=== PATIENT | female | born 1955 | race Caucasian/White ===

== ENCOUNTER 2018-04-14 17:53 | Emergency (ER) | payer MEDICARE, OTHER ==
[~2018-04-14] VITALS: Ht 157.5 cm; Wt 98.0 kg
--- NOTE | 2018-04-14 17:58 | ED Lower Extremity ---
General Stated Complaint: BILAT LEG SWELLING Source: patient, family, EMS Exam Limitations: no limitations History of Present Illness Date Seen by Provider: Apr 14, 2018 Time Seen by Provider: 17:56 Initial Comments To ER per EMS from home with reports of bilateral lower actually swelling for the past 4 days. She reports chronic shortness of breath. She just moved here to [place] week ago. Prior to this she lived in [place] and prior to that she lived in [place]. She had this once before when she lived in [place], was given a short course of Lasix and the swelling improved. Onset: just prior to arrival Severity: moderate Pain/Injury Location: bilateral leg Modifying Factors: Worse With Movement Allergies and Home Medications Home Medications Furosemide 40 Mg Tablet, 40 MG PO DAILY Prescribed by: ADRIAN VALVERDE on 04/14/18 1850 Patient Home Medication List Home Medication List Reviewed: Yes Review of Systems Constitutional: see HPI EENTM: see HPI Respiratory: see HPI Cardiovascular: no symptoms reported Genitourinary: no symptoms reported Musculoskeletal: see HPI Skin: no symptoms reported Psychiatric/Neurological: No Symptoms Reported (1 the) Physical Exam Vital Signs Vital Signs - First Documented 04/14/18 17:58 Temp 97.9 Pulse 94 Resp 20 B/P (MAP) 124/74 (91) Pulse Ox 96 O2 Delivery Room Air Capillary Refill : Height, Weight, BMI Height: '" Weight: lbs. oz. kg; BMI Method: General Appearance: WD/WN, no apparent distress HEENT: PERRL/EOMI, normal ENT inspection Neck: non-tender, full range of motion Cardiovascular: regular rate, rhythm, no murmur Respiratory: no respiratory distress, no accessory muscle use Gastrointestinal: normal bowel sounds, non tender, soft Hips: bilateral hip non-tender, bilateral hip normal inspection, bilateral hip normal range of motion Legs: bilateral leg non-tender, bilateral leg normal inspection, bilateral leg normal range of motion Knees: bilateral knee non-tender, bilateral knee normal inspection, bilateral knee normal range of motion Ankles: left ankle swelling (2+BLE) Feet: bilateral foot non-tender, bilateral foot normal inspection, bilateral foot normal range of motion, bilateral foot other (dorsalis pedis pulse +2 bilaterally) Neurologic/Psychiatric: alert, normal mood/affect, oriented x 3 Skin: normal color, warm/dry Progress/Results/Core Measures Results/Orders Lab Results Laboratory Tests Test 04/14/18 18:12 Range/Units White Blood Count 7.0 4.3-11.0 10^3/uL Red Blood Count 4.51 4.35-5.85 10^6/uL Hemoglobin 12.7 11.5-16.0 G/DL Hematocrit 39 35-52 % Mean Corpuscular Volume 86 80-99 FL Mean Corpuscular Hemoglobin 28 25-34 PG Mean Corpuscular Hemoglobin Concent 33 32-36 G/DL Red Cell Distribution Width 19.6 H 10.0-14.5 % Platelet Count 145 130-400 10^3/uL Mean Platelet Volume 10.3 7.4-10.4 FL Neutrophils (%) (Auto) 66 42-75 % Lymphocytes (%) (Auto) 24 12-44 % Monocytes (%) (Auto) 7 0-12 % Eosinophils (%) (Auto) 3 0-10 % Basophils (%) (Auto) 1 0-10 % Neutrophils # (Auto) 4.6 1.8-7.8 X 10^3 Lymphocytes # (Auto) 1.7 1.0-4.0 X 10^3 Monocytes # (Auto) 0.5 0.0-1.0 X 10^3 Eosinophils # (Auto) 0.2 0.0-0.3 10^3/uL Basophils # (Auto) 0.0 0.0-0.1 10^3/uL Sodium Level 136 135-145 MMOL/L Potassium Level 3.7 3.6-5.0 MMOL/L Chloride Level 103 98-107 MMOL/L Carbon Dioxide Level 20 L 21-32 MMOL/L Anion Gap 13 5-14 MMOL/L Blood Urea Nitrogen 14 7-18 MG/DL Creatinine 0.71 0.60-1.30 MG/DL Estimat Glomerular Filtration Rate > 60 BUN/Creatinine Ratio 20 Glucose Level 102 70-105 MG/DL Calcium Level 8.5 8.5-10.1 MG/DL Corrected Calcium 9.1 8.5-10.1 MG/DL Total Bilirubin 1.2 H 0.1-1.0 MG/DL Aspartate Amino Transf (AST/SGOT) 107 H 5-34 U/L Alanine Aminotransferase (ALT/SGPT) 61 H 0-55 U/L Alkaline Phosphatase 118 40-136 U/L B-Type Natriuretic Peptide 122.6 H <100.0 PG/ML Total Protein 6.7 6.4-8.2 GM/DL Albumin 3.2 3.2-4.5 GM/DL Thyroid Stimulating Hormone (TSH) 1.39 0.35-4.94 UIU/ML Free Thyroxine 1.03 0.70-1.48 NG/DL Serum Alcohol < 10 <10 MG/DL My Orders Orders - ADRIAN VALVERDE APRN BNP (04/14/18 17:55) Thyroid Stimulating Hormone (04/14/18 17:55) Free T4 (Free Thyroxine) (04/14/18 17:55) Ekg Tracing (04/14/18 17:55) Chest 1 View, Ap/Pa Only (04/14/18 17:55) Cbc With Automated Diff (04/14/18 17:55) Comprehensive Metabolic Panel (04/14/18 17:55) Us Venous Lower Ext Vijay (04/14/18 17:55) Iv Heplock-Insert (Order) (04/14/18 17:55) Alcohol (04/14/18 18:46) Vital Signs/I&O 04/14/18 17:58 Temp 97.9 Pulse 94 Resp 20 B/P (MAP) 124/74 (91) Pulse Ox 96 O2 Delivery Room Air Diagnostic Imaging Diagonstic Imaging: Xray Comments NAME: DENISE RAHMAN [facility] REC#: [id number] PT STATUS: REG ER : 1955 PHYSICIAN: ADRIAN VALVERDE APRN ADMIT DATE: 04/14/18/ER Signed Date of Exam:04/14/18 CHEST 1 VIEW, AP/PA ONLY INDICATION: Lower extremity swelling. COMPARISON: None. FINDINGS: Single view of the chest demonstrates minimal cardiac enlargement. The lungs are clear. There is no pneumothorax. The osseous structures normal. IMPRESSION: Minimal cardiac enlargement without pulmonary edema or infiltrate. Dictated by: Dictated on workstation # [id number] Dict: 04/14/181840 Trans: 04/14/181845 [id number] Interpreted by: FARIDA SANCHEZ Electronically signed by: FARIDA SANCHEZ 04/14/181845 Departure Impression Primary Impression: Pedal edema Additional Impression: Elevated LFTs Disposition: 01 HOME, SELF-CARE Condition: Stable Departure-Patient Inst. Decision time for Depature: 18:47 Referrals: UNKNOWN (PCP/Family) Primary Care Physician Patient Instructions: Dependent Edema (DC) Add. Discharge Instructions: 1. A list of local physicians is been provided to you. Call one of these to make an appointment to be seen within the next week. Elevate your legs as much as possible. Take the diuretic once daily for the next 3 days starting tomorrow. Follow-up with a physician to elevate your slightly elevated liver studies. Scripts Furosemide (Lasix) 40 Mg Tablet 40 MG PO DAILY, #3 TAB Prov: ADRIAN VALVERDE APRN 04/14/18 Work/School Note: Local Medical Staff Listing ADRIAN VALVERDE APRN Apr 14, 2018 17:58
[2018-04-14 18:22] LABS: BASOPHILS % (AUTO) 1 % (0-10); EOSINOPHILS # (AUTO) 0.2 10^3/uL (0.0-0.3); EOSINOPHILS % (AUTO) 3 % (0-10); HEMATOCRIT 39 % (35-52); HEMOGLOBIN 12.7 G/DL (11.5-16.0); LYMPHOCYTES # (AUTO) 1.7 X 10^3 (1.0-4.0); LYMPHOCYTES % (AUTO) 24 % (12-44); MEAN CORPUSCULAR HEMOGLOBIN 28 PG (25-34); MEAN CORPUSCULAR HGB CONC 33 G/DL (32-36); MEAN CORPUSCULAR VOLUME 86 FL (80-99); MEAN PLATELET VOLUME 10.3 FL (7.4-10.4); MONOCYTES # (AUTO) 0.5 X 10^3 (0.0-1.0); MONOCYTES % (AUTO) 7 % (0-12); NEUTROPHILS # (AUTO) 4.6 X 10^3 (1.8-7.8); NEUTROPHILS % (AUTO) 66 % (42-75); PLATELET COUNT 145 10^3/uL (130-400); RED BLOOD COUNT 4.51 10^6/uL (4.35-5.85); RED CELL DISTRIBUTION WIDTH 19.6 % (10.0-14.5)
[2018-04-14 18:40] LABS: ALANINE AMINOTRANSFERASE 61 U/L (0-55); ALBUMIN 3.2 GM/DL (3.2-4.5); ALKALINE PHOSPHATASE 118 U/L (40-136); BILIRUBIN,TOTAL 1.2 MG/DL (0.1-1.0); BUN/CREATININE RATIO 20; CALCIUM 8.5 MG/DL (8.5-10.1); CARBON DIOXIDE 20 MMOL/L (21-32); CHLORIDE 103 MMOL/L (98-107); CREATININE SERUM 0.71 MG/DL (0.60-1.30); GFR ESTIMATED > 60; GLUCOSE 102 MG/DL (70-105); POTASSIUM 3.7 MMOL/L (3.6-5.0); SODIUM 136 MMOL/L (135-145); TOTAL PROTEIN 6.7 GM/DL (6.4-8.2)
--- NOTE | 2018-04-14 18:44 | Diagnostic Imaging Report ---
INDICATION: Lower extremity swelling. COMPARISON: None. FINDINGS: Single view of the chest demonstrates minimal cardiac enlargement. The lungs are clear. There is no pneumothorax. The osseous structures normal. IMPRESSION: Minimal cardiac enlargement without pulmonary edema or infiltrate. Dictated by: Dictated on workstation # [id number]
[2018-04-14] MEDS ORDERED: FURO-124 PO (18:50)
[2018-04-14 19:01] LABS: FREE T4 (FREE THYROXINE) 1.03 NG/DL (0.70-1.48)
[2018-04-14 19:21] VITALS: BP 124/74
--- NOTE | 2018-04-14 19:25 | Diagnostic Imaging Report ---
EXAM: US VENOUS LOWER EXT DUYEN INDICATION: Bilateral lower extremity edema. COMPARISON: None. TECHNIQUE: Duplex, ferrara-scale and color-flow imaging of the bilateral lower extremities venous system was performed FINDINGS: The bilateral common femoral vein, superficial femoral vein, profunda femoris, and popliteal veins are normal. These vessels show normal compressibility, color flow, and doppler augmentation. The deep calf veins demonstrate no distinct intraluminal thrombus where seen. IMPRESSION: Negative venous Doppler of the bilateral lower extremities. Dictated by: Dictated on workstation # [id number]
== END 2018-04-14 19:24 | disposition home or self-care (01) ==
LOC: EDBD → ER 17:54
DX: R60.0 Localized edema (principal); R94.5 Abnormal results of liver function studies
CPT/HCPCS: 36415; 71045; 80053; 80320; 83880; 84439; 84443; 85025; 93005; 93970

== ENCOUNTER 2018-04-24 13:33 | Inpatient (IN) | payer MEDICARE, OTHER ==
[~2018-04-24] VITALS: Ht 157.5 cm; Wt 102.5 kg
[~2018-04-24 13:33] MED LIST: FURO-124 PO
[2018-04-24] MEDS ORDERED: ACETAMINOPHEN 500 MG TAB (TYLENOL) PO ONE (13:45)
--- NOTE | 2018-04-24 13:49 | ED General ---
General Stated Complaint: FALL Source of Information: Patient Exam Limitations: No Limitations History of Present Illness Date Seen by Provider: Apr 24, 2018 Time Seen by Provider: 13:46 Initial Comments To ER per EMS from home with reports of frequent falls about 6 times over the past 4-5 days. She states that she always falls because she feels as though her legs give out on her. However she's been falling more recently. She just moved to the area a few months ago and does not have a primary care provider. Formerly from [facility]. She states that she did hit her head during one of the falls, has a severe headache. Also reports left upper abdominal pain. She reports her pain at 10 out of 10 in her head, abdomen, back and states that she always has pain. Timing/Duration: 1-2 Days Severity: Moderate Associated Systoms: Headaches, Weakness Allergies and Home Medications Allergies Coded Allergies: Penicillins (Verified Allergy, Unknown, 04/24/18) doxycycline (Verified Allergy, Unknown, 04/24/18) levofloxacin (Verified Allergy, Unknown, 04/24/18) Home Medications Furosemide 40 Mg Tablet, 40 MG PO DAILY Prescribed by: ADRIAN VALVERDE on 04/14/18 3501 Patient Home Medication List Home Medication List Reviewed: Yes Review of Systems Review of Systems Constitutional: see HPI EENTM: see HPI Respiratory: no symptoms reported Cardiovascular: no symptoms reported Gastrointestinal: abdominal pain Genitourinary: see HPI Musculoskeletal: no symptoms reported Skin: no symptoms reported Psychiatric/Neurological: No Symptoms Reported, Headache Hematologic/Lymphatic: No Symptoms Reported Immunological/Allergic: no symptoms reported Past Crgjobj-Sucyvu-Nhuskd Hx Patient Social History Type Used: Cigarettes Recent Hopitalizations: No Seasonal Allergies Seasonal Allergies: No Past Medical History Surgeries: Yes (BI LAT KNEES, RT FOOT, NECK) Section, Orthopedic Respiratory: Yes COPD Cardiac: Yes Hypertension Genitourinary: Yes (FREQUENCY) Gastrointestinal: Yes (Hepatitis B) Endocrine: Yes Diabetes, Insulin dep Cancer: No Psychosocial: Yes Anxiety, Depression Physical Exam Vital Signs Vital Signs - First Documented 04/24/18 13:33 Temp 101.1 Pulse 93 Resp 20 B/P (MAP) 145/77 (99) Pulse Ox 94 O2 Delivery Room Air Capillary Refill : Height, Weight, BMI Height: 5'2.00" Weight: 216lbs. oz. 97.430568dn; BMI Method:Stated General Appearance: No Apparent Distress, WD/WN Eyes: Bilateral Eye Normal Inspection, Bilateral Eye PERRL HEENT: PERRL/EOMI, TMs Normal, Other (small ecchymosis to the right side of the forehead. No Crouch sign or raccoon eyes) Neck: Full Range of Motion, Normal Inspection Respiratory: Normal Breath Sounds, No Accessory Muscle Use, No Respiratory Distress Cardiovascular: Regular Rate, Rhythm, Normal Peripheral Pulses Gastrointestinal: Normal Bowel Sounds, Non Tender, Soft Extremity: Normal Capillary Refill, Normal Inspection Neurologic/Psychiatric: Alert, Oriented x3, No Motor/Sensory Deficits Skin: Normal Color, Warm/Dry Focused Exam Lactate Level 04/24/18 13:48: Lactic Acid Level 3.23*H Lactic Acid Level Laboratory Tests Test 04/24/18 13:48 Lactic Acid Level 3.23 MMOL/L (0.50-2.00) *H Progress/Results/Core Measures Suspected Sepsis SIRS Temperature: Pulse: Respiratory Rate: Laboratory Tests 04/24/18 13:48: White Blood Count 18.0H Blood Pressure / Mean: 04/24/18 13:48: Lactic Acid Level 3.23*H Laboratory Tests 04/24/18 13:48: Creatinine 0.90, INR Comment 1.5H, Platelet Count 137, Total Bilirubin 1.8H Results/Orders Lab Results Laboratory Tests Test 04/24/18 13:30 04/24/18 13:48 04/24/18 16:10 Range/Units Urine Color RAN H Urine Clarity SLIGHTLY CLOUDY Urine pH 6 5-9 Urine Specific [place] 1.020 1.016-1.022 Urine Protein 2+ H NEGATIVE Urine Glucose (UA) NEGATIVE NEGATIVE Urine Ketones 1+ H NEGATIVE Urine Nitrite NEGATIVE NEGATIVE Urine Bilirubin 2+ H NEGATIVE Urine Urobilinogen 4 H NORMAL MG/DL Urine Leukocyte Esterase 1+ H NEGATIVE Urine RBC (Auto) 3+ H NEGATIVE Urine RBC 5-10 H /HPF Urine WBC 2-5 /HPF Urine Squamous Epithelial Cells 2-5 /HPF Urine Crystals NONE /LPF Urine Bacteria FEW H /HPF Urine Casts PRESENT /LPF Urine Hyaline Casts 2-5 H /LPF Urine Mucus MODERATE H /LPF Urine Culture Indicated NO White Blood Count 18.0 H 4.3-11.0 10^3/uL Red Blood Count 4.57 4.35-5.85 10^6/uL Hemoglobin 12.9 11.5-16.0 G/DL Hematocrit 39 35-52 % Mean Corpuscular Volume 86 80-99 FL Mean Corpuscular Hemoglobin 28 25-34 PG Mean Corpuscular Hemoglobin Concent 33 32-36 G/DL Red Cell Distribution Width 20.1 H 10.0-14.5 % Platelet Count 137 130-400 10^3/uL Mean Platelet Volume 10.9 H 7.4-10.4 FL Neutrophils (%) (Auto) 90 H 42-75 % Lymphocytes (%) (Auto) 5 L 12-44 % Monocytes (%) (Auto) 5 0-12 % Eosinophils (%) (Auto) 0 0-10 % Basophils (%) (Auto) 0 0-10 % Neutrophils # (Auto) 16.3 H 1.8-7.8 X 10^3 Lymphocytes # (Auto) 0.9 L 1.0-4.0 X 10^3 Monocytes # (Auto) 0.9 0.0-1.0 X 10^3 Eosinophils # (Auto) 0.0 0.0-0.3 10^3/uL Basophils # (Auto) 0.0 0.0-0.1 10^3/uL Neutrophils % (Manual) 79 % Lymphocytes % (Manual) 9 % Monocytes % (Manual) 7 % Eosinophils % (Manual) 0 % Basophils % (Manual) 0 % Band Neutrophils 5 % Anisocytosis SLIGHT Prothrombin Time 17.9 H 12.2-14.7 SEC INR Comment 1.5 H 0.8-1.4 Sodium Level 134 L 135-145 MMOL/L Potassium Level 3.6 3.6-5.0 MMOL/L Chloride Level 99 98-107 MMOL/L Carbon Dioxide Level 21 21-32 MMOL/L Anion Gap 14 5-14 MMOL/L Blood Urea Nitrogen 18 7-18 MG/DL Creatinine 0.90 0.60-1.30 MG/DL Estimat Glomerular Filtration Rate > 60 BUN/Creatinine Ratio 20 Glucose Level 158 H 70-105 MG/DL Lactic Acid Level 3.23 *H 0.50-2.00 MMOL/L Calcium Level 9.0 8.5-10.1 MG/DL Corrected Calcium 9.6 8.5-10.1 MG/DL Total Bilirubin 1.8 H 0.1-1.0 MG/DL Aspartate Amino Transf (AST/SGOT) 112 H 5-34 U/L Alanine Aminotransferase (ALT/SGPT) 66 H 0-55 U/L Alkaline Phosphatase 129 40-136 U/L Total Protein 7.1 6.4-8.2 GM/DL Albumin 3.2 3.2-4.5 GM/DL My Orders Orders - ADRIAN VALVERDE APRN Cbc With Automated Diff (04/24/18 13:43) Comprehensive Metabolic Panel (04/24/18 13:43) Protime With Inr (04/24/18 13:43) Ua Culture If Indicated (04/24/18 13:43) Iv Heplock-Insert (Order) (04/24/18 13:43) Chest 1 View, Ap/Pa Only (04/24/18 13:43) Ct Head/Cervical Spine Wo (04/24/18 13:43) Ct Abdomen/Pelvis W (04/24/18 13:43) Blood Culture (04/24/18 13:43) Lactic Acid Analyzer (04/24/18 13:43) Acetaminophen Tablet (Tylenol Tablet) (04/24/18 13:45) Iohexol Injection (Omnipaque 350 Mg/Ml 1 (04/24/18 14:00) Sodium Chloride Flush (Catheter Flush Sy (04/24/18 14:00) Pharmacy Communication (Pharmacy Communi (04/24/18 13:53) Ns (Ivpb) (Sodium Chloride 0.9%) (04/24/18 14:00) Manual Differential (04/24/18 13:48) Ns Iv 1000 Ml (Sodium Chloride 0.9%) (04/24/18 14:30) Ceftriaxone For Iv Use (Rocephin For I (04/24/18 15:45) Lidocaine 1% Inj 20 Ml (Xylocaine 1% Inj (04/24/18 15:49) Pharmacy Consult/Message (04/24/18 16:17) Fentanyl Injection (Sublimaze Injection (04/24/18 16:30) Cefotaxime Injection (Non-Form (Claforan (04/24/18 16:30) Body Fluid Cell Count (04/24/18 16:22) Body Fluid Culture (04/24/18 16:22) Glucose,Body Fluid (04/24/18 16:22) Albumin,Body Fluid (04/24/18 16:22) Ldh,Body Fluid (04/24/18 16:22) Total Protein,Body Fluid (04/24/18 16:22) Medications Given in ED Current Medications Medications Dose Ordered Sig/Grace Route Start Time Stop Time Status Last Admin Dose Admin Acetaminophen 1,000 mg ONCE ONCE PO 04/24/18 13:45 04/24/18 13:46 DC 04/24/18 15:22 1,000 MG Iohexol 100 ml ONCE ONCE IV 04/24/18 14:00 04/24/18 14:01 DC 04/24/18 15:08 100 ML Sodium Chloride 10 ml NEEDED PRN IV 04/24/18 14:00 04/24/18 15:08 10 ML Sodium Chloride 250 ml ONCE ONCE IV 04/24/18 14:00 04/24/18 14:01 DC 04/24/18 15:08 80 ML Vital Signs/I&O 04/24/18 13:33 Temp 101.1 Pulse 93 Resp 20 B/P (MAP) 145/77 (99) Pulse Ox 94 O2 Delivery Room Air Capillary Refill : Diagnostic Imaging Diagonstic Imaging: CT Comments NAME: DENISE RAHMAN [facility] REC#: [id number] PT STATUS: REG ER : 1955 PHYSICIAN: ADRIAN VALVERDE APRN ADMIT DATE: 04/24/18/ER Draft Date of Exam:04/24/18 CT HEAD/CERVICAL SPINE WO PROCEDURE: CT head and CT cervical spine without contrast. TECHNIQUE: Multiple contiguous axial images were obtained through the brain and cervical spine without the use of intravenous contrast. Sagittal and coronal reformations through the cervical spine were then performed. INDICATION: Fall. Head injury. COMPARISON: None. FINDINGS: Examination is limited by motion artifact. CT head: No CT evidence for territorial infarction. No intracranial hemorrhage, mass effect, hydrocephalus or extra-axial fluid collection. Intracranial vascular calcifications. Osseous structures are intact. The paranasal sinuses and mastoids are clear. CT cervical spine: There are postoperative findings of an anterior fusion with interbody bone grafting at C4-C6. Normal alignment. Vertebral body heights are preserved. No fractures. Advanced degenerative endplate changes at C3-C4 and C6-C7. Osteophytic ridging appears to result in at least mild, possibly moderate spinal canal narrowing at C5-C6. There is diffuse moderate neural foraminal narrowing. Advanced atherosclerotic calcifications in the carotid bifurcations, left greater than right. The lung apices are clear. IMPRESSION: 1. Examination is limited by motion artifact. 2. Given the limitations, no acute intracranial or cervical spine CT findings. Chronic findings as above. Dictated on workstation # [id number] Dict: 04/24/18 1513 Trans: 04/24/18 1522 [facility] [id number] Interpreted by: LUCAS MORALES MD Electronically signed by: NAME: DENISE RAHMAN [facility] REC#: [id number] PT STATUS: REG ER : 1955 PHYSICIAN: ADRIAN VALVERDE APRN ADMIT DATE: 04/24/18/ER Draft Date of Exam:04/24/18 CHEST 1 VIEW, AP/PA ONLY EXAM: Chest 1 view, AP/PA only. INDICATION: Fall. COMPARISON: Chest radiograph, 04/14/2018. FINDINGS: Low lung volumes. Mild atelectasis or infiltrate in the right lung base. Normal heart size and pulmonary vascularity. No pleural effusion or pneumothorax. Postoperative changes in the lower cervical spine. No acute osseous findings. IMPRESSION: 1. Low lung volumes with mild atelectasis or infiltrate in the right lung base. 2. Remainder unremarkable. Dictated on workstation # [id number] Dict: 04/24/18 1527 Trans: 04/24/18 1529 [facility] [id number] Interpreted by: LUCAS MORALES MD Electronically signed by: Departure Communication (Admissions) Time/Spoke to Admitting Phy: 16:[address] Faye. He'll be done to do a paracentesis for cultures. I spoke with Dr. German. She agrees to admit. I initially did not believe that we had cefotaxime available here, Dr. German suggestion was for cefepime. I called pharmacy and they verify that we do in fact have cefotaxime so they will get that together for a first dose. Dr. Faye was able to drain thousand 860 mL clear yellow ascitic fluid in the right periumbilical region. Patient tolerated well. Impression Primary Impression: Severe sepsis Additional Impression: Spontaneous bacterial peritonitis Disposition: ADMITTED INPATIENT Condition: Stable Admissions Decision to Admit Reason: Admit from ER (General) Decision to Admit/Date: Apr 24, 2018 Time/Decision to Admit Time: 15:36 Departure-Patient Inst. Referrals: NO,LOCAL PHYSICIAN (PCP/Family) Primary Care Physician ADRIAN VALVERDE APRN Apr 24, 2018 13:49
[2018-04-24 14:00] LABS: BASOPHILS % (AUTO) 0 % (0-10); EOSINOPHILS % (AUTO) 0 % (0-10); HEMATOCRIT 39 % (35-52); HEMOGLOBIN 12.9 G/DL (11.5-16.0); LYMPHOCYTES # (AUTO) 0.9 X 10^3 (1.0-4.0); LYMPHOCYTES % (AUTO) 5 % (12-44); MEAN CORPUSCULAR HEMOGLOBIN 28 PG (25-34); MEAN CORPUSCULAR HGB CONC 33 G/DL (32-36); MEAN CORPUSCULAR VOLUME 86 FL (80-99); MEAN PLATELET VOLUME 10.9 FL (7.4-10.4); MONOCYTES # (AUTO) 0.9 X 10^3 (0.0-1.0); MONOCYTES % (AUTO) 5 % (0-12); NEUTROPHILS # (AUTO) 16.3 X 10^3 (1.8-7.8); NEUTROPHILS % (AUTO) 90 % (42-75); PLATELET COUNT 137 10^3/uL (130-400); RED BLOOD COUNT 4.57 10^6/uL (4.35-5.85); RED CELL DISTRIBUTION WIDTH 20.1 % (10.0-14.5)
[2018-04-24] MEDS ORDERED: CATHETER FLUSH 10 ML SYR IV PRN ×2 (14:00→20:30)
[2018-04-24] MEDS ORDERED: IOHEXOL 350 MG/ML 100 ML (OMNIPAQUE 350) VIAL IV ONE (14:00)
[2018-04-24] MEDS ORDERED: NS 250 ML (IVPB) BAG IV ONE (14:00)
[2018-04-24 14:02] LABS: CLARITY,URINE SLIGHTLY CLOUDY; COLOR,URINE AMBER; GLUCOSE, URINE (UA) NEGATIVE (NEGATIVE); KETONES,URINE 1+ (NEGATIVE); LEUKOCYTE ESTERASE ,URINE 1+ (NEGATIVE); NITRITE,URINE NEGATIVE (NEGATIVE); PH,URINE 6 (5-9); PROTEIN,URINE 2+ (NEGATIVE); UROBILINOGEN,URINE 4 MG/DL (NORMAL)
[2018-04-24 14:15] LABS: INR 1.5 (0.8-1.4); PROTHROMBIN TIME PATIENT 17.9 SEC (12.2-14.7)
[2018-04-24 14:24] LABS: ALANINE AMINOTRANSFERASE 66 U/L (0-55); ALBUMIN 3.2 GM/DL (3.2-4.5); ALKALINE PHOSPHATASE 129 U/L (40-136); BILIRUBIN,TOTAL 1.8 MG/DL (0.1-1.0); BUN/CREATININE RATIO 20; CARBON DIOXIDE 21 MMOL/L (21-32); CHLORIDE 99 MMOL/L (98-107); GFR ESTIMATED > 60; GLUCOSE 158 MG/DL (70-105); POTASSIUM 3.6 MMOL/L (3.6-5.0); SODIUM 134 MMOL/L (135-145); TOTAL PROTEIN 7.1 GM/DL (6.4-8.2)
[2018-04-24] MEDS ORDERED: NS IV 1000 ML 1,000 ML IV SCH (14:30)
[2018-04-24 14:38] LABS: BACTERIA,URINE FEW /HPF; BILIRUBIN,URINE 2+ (NEGATIVE)
[2018-04-24 14:52] LABS: BAND NEUTROPHILS 5 %; BASOPHILS % (MANUAL) 0 %; EOSINOPHILS % (MANUAL) 0 %; LYMPHOCYTES % (MANUAL) 9 %; MONOCYTES % (MANUAL) 7 %; NEUTROPHILS % (MANUAL) 79 %
[2018-04-24 14:53] LABS: ANISOCYTOSIS SLIGHT
--- NOTE | 2018-04-24 15:22 | Diagnostic Imaging Report ---
PROCEDURE: CT head and CT cervical spine without contrast. TECHNIQUE: Multiple contiguous axial images were obtained through the brain and cervical spine without the use of intravenous contrast. Sagittal and coronal reformations through the cervical spine were then performed. INDICATION: Fall. Head injury. COMPARISON: None. FINDINGS: Examination is limited by motion artifact. CT head: No CT evidence for territorial infarction. No intracranial hemorrhage, mass effect, hydrocephalus or extra-axial fluid collection. Intracranial vascular calcifications. Osseous structures are intact. The paranasal sinuses and mastoids are clear. CT cervical spine: There are postoperative findings of an anterior fusion with interbody bone grafting at C4-C6. Normal alignment. Vertebral body heights are preserved. No fractures. Advanced degenerative endplate changes at C3-C4 and C6-C7. Osteophytic ridging appears to result in at least mild, possibly moderate spinal canal narrowing at C5-C6. There is diffuse moderate neural foraminal narrowing. Advanced atherosclerotic calcifications in the carotid bifurcations, left greater than right. The lung apices are clear. IMPRESSION: 1. Examination is limited by motion artifact. 2. Given the limitations, no acute intracranial or cervical spine CT findings. Chronic findings as above. Dictated by: Dictated on workstation # [id number]
--- NOTE | 2018-04-24 15:26 | Diagnostic Imaging Report ---
PROCEDURE: CT abdomen and pelvis with contrast. TECHNIQUE: Multiple contiguous axial images were obtained through the abdomen and pelvis after administration of intravenous contrast. INDICATION: Abdominal pain. COMPARISON: None available. FINDINGS: Lower chest: The lung bases are clear. No pericardial or pleural effusion. Peritoneum: There is a moderate amount of free fluid within the abdomen. No free intraperitoneal air. Liver and biliary system: The liver is small and has a somewhat nodular morphology raising the possibility of cirrhosis. No focal hepatic lesion. The gallbladder is normal. No biliary duct dilation. Spleen and Pancreas: Borderline splenomegaly with the spleen measuring 13.5 cm. The pancreas enhances normally without mass lesion or peripancreatic inflammatory changes. Adrenals: Normal. tract: The kidneys enhance normally without suspicious mass or obstruction. Urinary bladder is decompressed. Uterus is normal in appearance. No adnexal mass. GI tract: The stomach has a markedly abnormal appearance with diffuse low-attenuation wall thickening throughout its entirety. There is an area of potential gas within the wall of the distal stomach/duodenal bulb raising the possibility of ulcer. No extraluminal gas to indicate perforation. No bowel obstruction. No pericolonic inflammatory changes. Appendix is not seen with certainty although there are no inflammatory changes that would suggest acute appendicitis. Vasculature and Lymph nodes: Normal caliber aorta. No abdominal or pelvic lymphadenopathy. Musculoskeletal: No concerning osseous lesion. IMPRESSION: 1. Markedly abnormal stomach with extensive low-attenuation wall thickening suggestive of gastritis. An infiltrative neoplastic process could also give this appearance. Questionable focal intramural gas at the level of the distal stomach/duodenal bulb could relate to an ulcer. There are no features of ulcer perforation. GI consultation is suggested for further management and evaluation. 2. Cirrhosis with a moderate amount of abdominal and pelvic ascites. 3. Borderline splenomegaly suggests portal hypertension. Dictated by: Dictated on workstation # [id number]
--- NOTE | 2018-04-24 15:30 | Diagnostic Imaging Report ---
EXAM: Chest 1 view, AP/PA only. INDICATION: Fall. COMPARISON: Chest radiograph, 04/14/2018. FINDINGS: Low lung volumes. Mild atelectasis or infiltrate in the right lung base. Normal heart size and pulmonary vascularity. No pleural effusion or pneumothorax. Postoperative changes in the lower cervical spine. No acute osseous findings. IMPRESSION: 1. Low lung volumes with mild atelectasis or infiltrate in the right lung base. 2. Remainder unremarkable. Dictated by: Dictated on workstation # [id number]
[2018-04-24] MEDS ORDERED: cefTRIAXone FOR IV USE 2,000 MG in NS (IVPB) 50 ML IV ONE ×2 (15:45→22:00)
[2018-04-24] MEDS ORDERED: LIDOCAINE 1% INJ 20 ML 20 ML VIAL ONE (15:49)
[2018-04-24] MEDS ORDERED: fentaNYL INJECTION 100 MCG/2 ML AMP IVP ONE (16:30)
[2018-04-24] MEDS ORDERED: [UNRECOGNIZED DRUG - REMARK] IV ONE (16:30)
[2018-04-24 17:01] LABS: ALBUMIN,BODY FLUID 0.5 G/DL; GLUCOSE,BODY FLUID 175 MG/DL; LDH,BODY FLUID 66 U/L; TOTAL PROTEIN,BODY FLUID 0.8 G/DL
[2018-04-24 17:35] LABS: BODY FLUID APPEARENCE HAZY; BODY FLUID COLOR YELLOW; BODY FLUID RBC COUNT 41 /uL; BODY FLUID SOURCE PERITONEAL; BODY FLUID WBC TOTAL COUNT 479 /uL
[2018-04-24 17:38] VITALS: BP 120/69
[2018-04-24] MEDS ORDERED: NS IV 1000 ML 1,000 ML ONE (18:23)
[2018-04-24] MEDS: NS IV 1000 ML 1,000 ML IV SCH (18:32)
[2018-04-24 19:02] LABS: LYMPHOCYTES,BODY FLUID 12 %
[2018-04-24 20:00] VITALS: BP 122/70
[2018-04-24] MEDS: PANTOPRAZOLE 40 MG (PROTONIX) VIAL IV SCH (20:36)
[2018-04-24] MEDS: IBUPROFEN 800 MG (MOTRIN) TAB PO PRN (20:36)
[2018-04-24] MEDS: fentaNYL INJECTION 100 MCG/2 ML AMP IVP PRN ×2 (20:36→23:06)
--- NOTE | 2018-04-24 21:46 | Consultation ---
History of Present Illness History of Present Illness Patient Consulted On(haim/time) 04/24/18 21:38 Date Seen by Provider: Apr 24, 2018 Time Seen by Provider: 14:00 History of Present Illness seen and evaluated in ED.. Consult requested by Sai Chong for paracentesis, abdominal pain. Patient is a 62 year old female who has not felt well last 4-5 days. SHe states that she has has several falls and had another one prior to coming today. Patient states last day she has been having fever. She has abdominal pain thats all over. DOes not move anywhere. Nothing makes better and nothing makes worse. Patient has severe headache. She has noticed increased abdominal girth. She had a ct scan which was reviewed, and demonstrating stomach changes with inflammation suggestive of gastritis, and maybe intramural air or possible neoplasm stomach/duodenum, moderate ascites. Patient states has hepatitis, no local physician. Allergies and Home Medications Allergies Coded Allergies: Penicillins (Verified Allergy, Unknown, 04/24/18) doxycycline (Verified Allergy, Unknown, 04/24/18) levofloxacin (Verified Allergy, Unknown, 04/24/18) Home Medications Adalimumab 40 Mg/0.4 Ml Pen.ij.kit, 40 MG SQ Sa, (Reported) Albuterol Sulfate 1 Puff Puff, 2 PUFF IH TID PRN for SHORTNESS OF BREATH, ( Reported) 1 PUFF = 90 MCG Amitriptyline HCl 50 Mg Tablet, 50 MG PO HS, (Reported) Aspirin 81 Mg Tablet.dr, 81 MG PO DAILY, (Reported) Buspirone HCl 15 Mg Tablet, 15 MG PO BID, (Reported) Cefdinir 300 Mg Capsule, 300 MG PO BID Prescribed by: ROSA M GALEANA on 04/29/18 1150 Donepezil HCl 10 Mg Tablet, 10 MG PO DAILY, (Reported) Hydrocodone/Acetaminophen 1 Each Tablet, 1 TAB PO QID PRN for PAIN-MODERATE Prescribed by: ROSA M GALEANA on 04/30/18 1537 Leflunomide 20 Mg Tablet, 20 MG PO Q48H, (Reported) Losartan Potassium 25 Mg Tablet, 25 MG PO DAILY, (Reported) Lovastatin 40 Mg Tablet, 40 MG PO HS, (Reported) Pantoprazole Sodium 20 Mg Tablet.dr, 20 MG PO DAILY, (Reported) Promethazine HCl 25 Mg Tablet, 25 MG PO Q6H PRN for NAUSEA/VOMITING-1ST LINE, ( Reported) Rizatriptan Benzoate 10 Mg Tablet, 10 MG PO UD PRN for MIGRAINE, (Reported) Sertraline HCl 100 Mg Tablet, 150 MG PO DAILY, (Reported) TAKES 1 & 1/2 (100MG) TABLETS Patient Home Medication List Home Medication List Reviewed: Yes Past Xalwlhu-Swpxex-Mnzdxh Hx Patient Social History Alcohol Use: Denies Use Recreational Drug Use: Yes (SMOKES MARIJUANA DAILY) Drug of Choice: MARIJUANA Smoking Status: Never a Smoker Type Used: Cigarettes Recent Foreign Travel: No Contact w/Someone Who Travel: No Recent Infectious Disease Expo: No Recent Hopitalizations: No Physical Abuse Screen: No Sexual Abuse: No Seasonal Allergies Seasonal Allergies: No Surgeries History of Surgeries: Yes (BI LAT KNEES, RT FOOT, NECK) Surgeries: Section, Orthopedic Respiratory History of Respiratory Disorde: Yes Respiratory Disorders: COPD Cardiovascular History of Cardiac Disorders: Yes Cardiac Disorders: Hypertension Neurological History of Neurological Disord: No Genitourinary History of Genitourinary Disor: Yes (FREQUENCY) Gastrointestinal History of Gastrointestinal Di: Yes (Hepatitis B) Gastrointestinal Disorders: Hepatitis Musculoskeletal History of Musculoskeletal Dis: No Endocrine History of Endocrine Disorders: Yes Endocrine Disorders: Diabetes, Insulin dep HEENT History of HEENT Disorders: No Loss of Vision: Denies Hearing Impairment: Denies Cancer History of Cancer: No Psychosocial History of Psychiatric Problem: Yes Behavioral Health Disorders: Anxiety, Depression Integumentary History of Skin or Integumenta: Yes Skin/Integumentary Disorders: Eczema Family Medical History Significant Family History: No Pertinent Family Hx Review of Systems-General Constitutional: see HPI EENTM: no symptoms reported Respiratory: no symptoms reported Cardiovascular: no symptoms reported Gastrointestinal: see HPI Genitourinary: no symptoms reported Musculoskeletal: no symptoms reported Skin: no symptoms reported Psychiatric/Neurological: No Symptoms Reported Physical Exam-General Problems Physical Exam Vital Signs Vital Signs - First Documented Capillary Refill : Less Than 3 SecondsLess Than 3 Seconds General Appearance: no apparent distress (laying in bed) HEENT: PERRL/EOMI Neck: supple, normal inspection Respiratory: no respiratory distress, no accessory muscle use Cardiovascular: regular rate, rhythm Gastrointestinal: distended, other (fluid wave, tenderness left upper quadrant. ) Rectal: deferred Back: normal inspection Extremities: non-tender Neurologic/Psychiatric: rn case mgr II-XII nml as tested, no motor/sensory deficits, alert, normal mood/affect, oriented x 3 Skin: normal color, warm/dry Lymphatic: no adenopathy Data Review Labs Laboratory Tests 04/24/18 13:30: Urine Color AMBERH, Urine Clarity SLIGHTLY CLOUDY, Urine pH 6, Urine Specific [place] 1.020, Urine Protein 2+H, Urine Glucose (UA) NEGATIVE, Urine Ketones 1+H , Urine Nitrite NEGATIVE, Urine Bilirubin 2+H, Urine Urobilinogen 4H, Urine Leukocyte Esterase 1+H, Urine RBC (Auto) 3+H, Urine RBC 5-10H, Urine WBC 2-5, Urine Squamous Epithelial Cells 2-5, Urine Crystals NONE, Urine Bacteria FEWH, Urine Casts PRESENT, Urine Hyaline Casts 2-5H, Urine Mucus MODERATEH, Urine Culture Indicated NO 04/24/18 13:48: White Blood Count 18.0H, Red Blood Count 4.57, Hemoglobin 12.9, Hematocrit 39, Mean Corpuscular Volume 86, Mean Corpuscular Hemoglobin 28, Mean Corpuscular Hemoglobin Concent 33, Red Cell Distribution Width 20.1H, Platelet Count 137, Mean Platelet Volume 10.9H, Neutrophils (%) (Auto) 90H, Lymphocytes (%) (Auto) 5L, Monocytes (%) (Auto) 5, Eosinophils (%) (Auto) 0, Basophils (%) (Auto) 0, Neutrophils # (Auto) 16.3H, Lymphocytes # (Auto) 0.9L, Monocytes # (Auto) 0.9, Eosinophils # (Auto) 0.0, Basophils # (Auto) 0.0, Neutrophils % (Manual) 79, Lymphocytes % (Manual) 9, Monocytes % (Manual) 7, Eosinophils % (Manual) 0, Basophils % (Manual) 0, Band Neutrophils 5, Anisocytosis SLIGHT, Prothrombin Time 17.9H, INR Comment 1.5H, Sodium Level 134L, Potassium Level 3.6, Chloride Level 99, Carbon Dioxide Level 21, Anion Gap 14, Blood Urea Nitrogen 18, Creatinine 0.90, Estimat Glomerular Filtration Rate > 60, BUN/Creatinine Ratio 20, Glucose Level 158H, Lactic Acid Level 3.23*H, Calcium Level 9.0, Corrected Calcium 9.6, Total Bilirubin 1.8H, Aspartate Amino Transf (AST/SGOT) 112H, Alanine Aminotransferase (ALT/SGPT) 66H, Alkaline Phosphatase 129, Total Protein 7.1, Albumin 3.2 04/24/18 16:10: Body Fluid Source PERITONEAL, Body Fluid Color YELLOW, Body Fluid Appearance HAZY, Body Fluid WBC 479, Body Fluid RBC 41, Body Fluid Polynuclear WBCs 35, Body Fluid Mononuclear WBCs 53, Body Fluid Lymphocytes 12, Body Fluid Other Cells , Body Fluid Glucose 175, Body Fluid Total Protein 0.8, Body Fluid Albumin 0.5, Body Fluid Lactate Dehydrogenase 66 04/24/18 17:18: Lactic Acid Level 2.03*H Assessment/Plan Assessment/Plan Assessment/Plan LUQ Abdominal pain ascites gastritis versus neoplasm with possible intramural air by ct Consideration sbp and asked to do paracentesis which was performed and took off 1860 mL of straw colored fluid. Protonix 40 mg bid IV IV abx to cover for sbp will follow will need EGD in near future to further evaluate. Clinical Quality Measures DVT/VTE Risk/Contraindication: Risk Factor Score Per Nursin RFS Level Per Nursing on Admit: 4+=Very High KVNG CAMACHO DO Apr 24, 2018 21:46
[2018-04-24] MEDS ORDERED: CEFOTAXIME 2 GM IV SCH (22:00)
[2018-04-24] MEDS: CATHETER FLUSH 10 ML SYR IV SCH (22:31)
[2018-04-24] MEDS: MICONAZOLE 2% POWDER (DESENEX AF) 90 GM TOP SCH (22:32)
[2018-04-25] VITALS: BP 134/70
[2018-04-25] MEDS: fentaNYL INJECTION 100 MCG/2 ML AMP IVP PRN ×6 (01:05→22:25)
[2018-04-25] MEDS: NS IV 1000 ML 1,000 ML IV SCH ×4 (03:15→18:33)
[2018-04-25] MEDS: IBUPROFEN 800 MG (MOTRIN) TAB PO PRN ×2 (03:15→11:40)
[2018-04-25 04:00] VITALS: BP 136/71
--- NOTE | 2018-04-25 04:39 | Progress Note ---
Subjective Date Seen by Provider: Apr 25, 2018 Time Seen by Provider: 04:36 Subjective/Events-last exam patient having urge to urinate quite a bit. still having abdominal pain mostly in left upper quadrant. having some nausea, no emesis not had any fever since on the floor. Focused Exam Lactate Level 04/24/18 13:48: Lactic Acid Level 3.23*H 04/24/18 17:18: Lactic Acid Level 2.03*H Objective Exam Vital Signs Date Time Temp Pulse Resp B/P (MAP) Pulse Ox O2 Delivery O2 Flow Rate FiO2 04/25/18 04:00 98.7 92 20 136/71 (92) 97 Room Air 04/25/18 01:00 97 04/25/18 00:00 99.2 100 20 134/70 (91) 92 Room Air 04/24/18 20:00 100.0 103 20 122/70 (87) 92 Room Air 04/24/18 19:00 100 04/24/18 18:49 Room Air 04/24/18 18:22 101 04/24/18 17:38 99.4 98 20 120/69 (86) 96 Room Air 04/24/18 17:26 88 20 126/70 96 Room Air 04/24/18 13:33 101.1 93 20 145/77 (99) 94 04/24/18 13:33 101.1 93 20 145/77 (99) 94 Room Air I & O 04/25/18 07:00 Intake Total 1100 ml Output Total 125 ml Balance 975 ml Capillary Refill : Less Than 3 SecondsLess Than 3 Seconds General Appearance: No Apparent Distress, WD/WN HEENT: PERRL/EOMI, TMs Normal, Other (small ecchymosis to the right side of the forehead. No Crouch sign or raccoon eyes) Neck: Full Range of Motion, Normal Inspection Respiratory: Normal Breath Sounds, No Accessory Muscle Use, No Respiratory Distress Cardiovascular: Regular Rate, Rhythm, Normal Peripheral Pulses Gastrointestinal: distended, other (fluid wave, tenderness left upper quadrant same as yesterday) Extremity: Normal Capillary Refill, Normal Inspection Neurologic/Psychiatric: Alert, Oriented x3, No Motor/Sensory Deficits Skin: Normal Color, Warm/Dry Results Lab Laboratory Tests 04/24/18 13:30: Urine Color AMBERH, Urine Clarity SLIGHTLY CLOUDY, Urine pH 6, Urine Specific [place] 1.020, Urine Protein 2+H, Urine Glucose (UA) NEGATIVE, Urine Ketones 1+H , Urine Nitrite NEGATIVE, Urine Bilirubin 2+H, Urine Urobilinogen 4H, Urine Leukocyte Esterase 1+H, Urine RBC (Auto) 3+H, Urine RBC 5-10H, Urine WBC 2-5, Urine Squamous Epithelial Cells 2-5, Urine Crystals NONE, Urine Bacteria FEWH, Urine Casts PRESENT, Urine Hyaline Casts 2-5H, Urine Mucus MODERATEH, Urine Culture Indicated NO 04/24/18 13:48: White Blood Count 18.0H, Red Blood Count 4.57, Hemoglobin 12.9, Hematocrit 39, Mean Corpuscular Volume 86, Mean Corpuscular Hemoglobin 28, Mean Corpuscular Hemoglobin Concent 33, Red Cell Distribution Width 20.1H, Platelet Count 137, Mean Platelet Volume 10.9H, Neutrophils (%) (Auto) 90H, Lymphocytes (%) (Auto) 5L, Monocytes (%) (Auto) 5, Eosinophils (%) (Auto) 0, Basophils (%) (Auto) 0, Neutrophils # (Auto) 16.3H, Lymphocytes # (Auto) 0.9L, Monocytes # (Auto) 0.9, Eosinophils # (Auto) 0.0, Basophils # (Auto) 0.0, Neutrophils % (Manual) 79, Lymphocytes % (Manual) 9, Monocytes % (Manual) 7, Eosinophils % (Manual) 0, Basophils % (Manual) 0, Band Neutrophils 5, Anisocytosis SLIGHT, Prothrombin Time 17.9H, INR Comment 1.5H, Sodium Level 134L, Potassium Level 3.6, Chloride Level 99, Carbon Dioxide Level 21, Anion Gap 14, Blood Urea Nitrogen 18, Creatinine 0.90, Estimat Glomerular Filtration Rate > 60, BUN/Creatinine Ratio 20, Glucose Level 158H, Lactic Acid Level 3.23*H, Calcium Level 9.0, Corrected Calcium 9.6, Total Bilirubin 1.8H, Aspartate Amino Transf (AST/SGOT) 112H, Alanine Aminotransferase (ALT/SGPT) 66H, Alkaline Phosphatase 129, Total Protein 7.1, Albumin 3.2 04/24/18 16:10: Body Fluid Source PERITONEAL, Body Fluid Color YELLOW, Body Fluid Appearance HAZY, Body Fluid WBC 479, Body Fluid RBC 41, Body Fluid Polynuclear WBCs 35, Body Fluid Mononuclear WBCs 53, Body Fluid Lymphocytes 12, Body Fluid Other Cells , Body Fluid Glucose 175, Body Fluid Total Protein 0.8, Body Fluid Albumin 0.5, Body Fluid Lactate Dehydrogenase 66 04/24/18 17:18: Lactic Acid Level 2.03*H Assessment/Plan Assessment/Plan Assessment/Plan LUQ Abdominal pain ascites gastritis versus neoplasm with possible intramural air by ct Consideration sbp and asked to do paracentesis which was performed and took off 1860 mL of straw colored fluid. Protonix 40 mg bid IV IV abx to cover for sbp labs pending today will follow will need EGD in near future to further evaluate. Clinical Quality Measures DVT/VTE Risk/Contraindication: Risk Factor Score Per Nursin RFS Level Per Nursing on Admit: 4+=Very High KVNG CAMACHO DO Apr 25, 2018 04:39
[2018-04-25] MEDS: ONDANSETRON 4 MG/2 ML (SDV) Z0FRAN IV PRN ×3 (05:19→17:50)
[2018-04-25] MEDS: CATHETER FLUSH 10 ML SYR IV SCH ×3 (05:30→22:27)
[2018-04-25 05:33] LABS: BASOPHILS % (AUTO) 0 % (0-10); EOSINOPHILS % (AUTO) 0 % (0-10); HEMATOCRIT 41 % (35-52); HEMOGLOBIN 13.9 G/DL (11.5-16.0); LYMPHOCYTES # (AUTO) 1.6 X 10^3 (1.0-4.0); LYMPHOCYTES % (AUTO) 8 % (12-44); MEAN CORPUSCULAR HEMOGLOBIN 29 PG (25-34); MEAN CORPUSCULAR HGB CONC 34 G/DL (32-36); MEAN CORPUSCULAR VOLUME 85 FL (80-99); MEAN PLATELET VOLUME 10.5 FL (7.4-10.4); MONOCYTES % (AUTO) 5 % (0-12); NEUTROPHILS # (AUTO) 17.7 X 10^3 (1.8-7.8); NEUTROPHILS % (AUTO) 87 % (42-75); PLATELET COUNT 109 10^3/uL (130-400); RED CELL DISTRIBUTION WIDTH 20.6 % (10.0-14.5); WHITE BLOOD COUNT 20.3 10^3/uL (4.3-11.0)
[2018-04-25 05:51] LABS: ALANINE AMINOTRANSFERASE 62 U/L (0-55); ALBUMIN 2.9 GM/DL (3.2-4.5); ALKALINE PHOSPHATASE 124 U/L (40-136); BILIRUBIN,TOTAL 1.6 MG/DL (0.1-1.0); BUN/CREATININE RATIO 23; CALCIUM 8.5 MG/DL (8.5-10.1); CARBON DIOXIDE 19 MMOL/L (21-32); CHLORIDE 103 MMOL/L (98-107); CREATININE SERUM 0.84 MG/DL (0.60-1.30); GFR ESTIMATED > 60; POTASSIUM 3.4 MMOL/L (3.6-5.0); SODIUM 135 MMOL/L (135-145); TOTAL PROTEIN 6.5 GM/DL (6.4-8.2)
[2018-04-25 06:12] LABS: GLUCOSE 124 MG/DL (70-105)
[2018-04-25 08:00] VITALS: BP 148/78
[2018-04-25] MEDS: PANTOPRAZOLE 40 MG (PROTONIX) VIAL IV SCH ×2 (08:47→22:24)
[2018-04-25] MEDS: MICONAZOLE 2% POWDER (DESENEX AF) 90 GM TOP SCH ×2 (08:47→22:27)
--- NOTE | 2018-04-25 11:14 | History & Physical-Hospitalist ---
History of Present Illness HPI/Chief Complaint This is a 62-year-old white female who is a poor historian. She has a history of hepatitis be but does not have any awareness that she has cirrhosis of the liver. He says she got the hepatitis B from an old boyfriend. She was brought to the emergency room with complaints of increased falling and weakness over the last week or so. She complains of having pain all over but that she has had that for years. Her primary complaint this morning is that she's very very hungry and very very thirsty Source: patient Exam Limitations: clinical condition Date Seen 04/25/18 Time Seen by Provider: 10:45 Attending Physician Nany German MD PCP No,Local Physician Referring Physician Date of Admission Apr 24, 2018 at 15:33 Home Medications & Allergies Home Medications Reviewed patient Home Medication Reconciliation performed by pharmacy medication reconciliations soil field technician and/or nursing. Patients Allergies have been reviewed. Allergies Allergies Coded Allergies Penicillins (Verified Allergy, Unknown, 04/24/18) doxycycline (Verified Allergy, Unknown, 04/24/18) levofloxacin (Verified Allergy, Unknown, 04/24/18) Past Prlvgge-Xeaywn-Sawtay Hx Past Med/Social Hx: Reviewed Nursing Past Med/Soc Hx Patient Social History Marrital Status: single Employed/Student: unemployed Alcohol Use: Denies Use Recreational Drug Use: Yes (SMOKES MARIJUANA DAILY) Drug of Choice: MARIJUANA Smoking Status: Never a Smoker Type Used: Cigarettes Physical Abuse Screen: No Sexual Abuse: No Recent Foreign Travel: No Contact w/other who traveled: No Recent Hopitalizations: No Recent Infectious Disease Expo: No Seasonal Allergies Seasonal Allergies: No Past Medical History Surgeries: Section, Orthopedic Cardiac: Hypertension Gastrointestinal: Hepatitis Endocrine: Diabetes, Insulin dep Loss of Vision: Denies Hearing Impairment: Denies Psychosocial: Anxiety, Depression Skin/Integumentary: Eczema Review of Systems Constitutional: weakness EENTM: no symptoms reported Respiratory: dyspnea on exertion Cardiovascular: no symptoms reported Gastrointestinal: abdominal pain Genitourinary: frequency Musculoskeletal: muscle pain Skin: other (Lysis) Psychiatric/Neurological: Weakness Physical Exam Physical Exam Vital Signs Vital Signs - First Documented Capillary Refill : Less Than 3 SecondsLess Than 3 Seconds Height, Weight, BMI Height: 5'2.00" Weight: 226lbs. 0.0oz. 102.465487fv; 39.5 BMI Method:Stated General Appearance: Chronically ill, Obese Eyes: Bilateral Eye Abnormal EOM HEENT: Other (Dry oral mucosa) Neck: Limited Range of Motion Respiratory: Chest Non Tender, Lungs Clear, No Accessory Muscle Use Cardiovascular: Regular Rate, Rhythm, No Gallop, Systolic Murmur Gastrointestinal: Normal Bowel Sounds, Soft, Tenderness Rectal: Deferred Back: Normal Inspection, No CVA Tenderness, No Vertebral Tenderness Extremity: Non Tender, No Pedal Edema Neurologic/Psychiatric: Alert, Depressed Affect, Disoriented Skin: Warm/Dry, Pallor Results Results/Procedures Labs Laboratory Tests 04/24/18 13:48 04/25/18 04:50 Patient resulted labs reviewed. Assessment/Plan Admission Diagnosis 1. Sepsis with strep coccus pneumonia on Gram stain of the blood cultures-on Rocephin day number 2 2. Cirrhosis of the liver with evidence of portal hypertension and ascites- peritoneal fluid cultures pending we'll check an ammonia level 3. History of hepatitis B- will check for hepatitis C as well 4. Thickened gastric mucosa of required a EGD-Dr. Faye to do early this next week- 5. Thrombocytopenia most likely secondary to sequestration because of the splenomegaly 6. Either mildly confused or low functioning state we'll check a serum ammonia level Admission Status: Inpatient Order (span 2 midnights) Reason for Inpatient Admission: Patient with multiple comorbidities and septicemia by blood cultures Clinical Quality Measures DVT/VTE Risk/Contraindication: Risk Factor Score Per Nursin RFS Level Per Nursing on Admit: 4+=Very High NANY GERMAN MD Apr 25, 2018 11:14
[2018-04-25] MEDS: ENOXAPARIN 40 MG/0.4 ML (LOVENOX) SYR SC SCH ×2 (11:39→22:25)
[2018-04-25 12:29] VITALS: BP 172/84
[2018-04-25 16:00] VITALS: BP 140/73
[2018-04-25] MEDS ORDERED: METOCLOPRAMIDE INJ 10 MG/2 ML (REGLAN) IVP PRN (18:00)
[2018-04-25] MEDS ORDERED: METOCLOPRAMIDE INJ 10 MG/2 ML (REGLAN) ONE (18:23)
[2018-04-25 20:00] VITALS: BP 163/79
[2018-04-25] MEDS: cefTRIAXone FOR IV USE 2,000 MG in NS (IVPB) 50 ML IV SCH (22:26)
[2018-04-25] MEDS: metroNIDAZOLE 500MG/100ML IVPB 100 ML IV SCH (22:27)
[2018-04-26] VITALS: BP 139/78
[2018-04-26] MEDS: fentaNYL INJECTION 100 MCG/2 ML AMP IVP PRN ×4 (02:43→11:35)
[2018-04-26 04:00] VITALS: BP 140/79
[2018-04-26] MEDS: CATHETER FLUSH 10 ML SYR IV SCH ×3 (05:17→21:06)
[2018-04-26] MEDS: metroNIDAZOLE 500MG/100ML IVPB 100 ML IV SCH ×3 (05:28→21:06)
[2018-04-26] MEDS: NS IV 1000 ML 1,000 ML IV SCH ×2 (05:29→18:18)
[2018-04-26 06:26] LABS: BASOPHILS % (AUTO) 0 % (0-10); EOSINOPHILS % (AUTO) 0 % (0-10); HEMATOCRIT 38 % (35-52); HEMOGLOBIN 12.3 G/DL (11.5-16.0); LYMPHOCYTES % (AUTO) 13 % (12-44); MEAN CORPUSCULAR HEMOGLOBIN 28 PG (25-34); MEAN CORPUSCULAR HGB CONC 33 G/DL (32-36); MEAN CORPUSCULAR VOLUME 86 FL (80-99); MEAN PLATELET VOLUME 10.8 FL (7.4-10.4); MONOCYTES # (AUTO) 1.3 X 10^3 (0.0-1.0); MONOCYTES % (AUTO) 8 % (0-12); NEUTROPHILS # (AUTO) 11.7 X 10^3 (1.8-7.8); NEUTROPHILS % (AUTO) 78 % (42-75); PLATELET COUNT 165 10^3/uL (130-400); RED BLOOD COUNT 4.39 10^6/uL (4.35-5.85); RED CELL DISTRIBUTION WIDTH 20.7 % (10.0-14.5)
[2018-04-26 06:48] LABS: ALBUMIN 3.1 GM/DL (3.2-4.5); BILIRUBIN,TOTAL 1.2 MG/DL (0.1-1.0); CALCIUM 8.9 MG/DL (8.5-10.1); CREATININE SERUM 1.15 MG/DL (0.60-1.30); POTASSIUM 3.5 MMOL/L (3.6-5.0); TOTAL PROTEIN 6.8 GM/DL (6.4-8.2)
[2018-04-26] MEDS: ENOXAPARIN 40 MG/0.4 ML (LOVENOX) SYR SC SCH ×2 (07:55→21:05)
[2018-04-26] MEDS: MICONAZOLE 2% POWDER (DESENEX AF) 90 GM TOP SCH ×2 (07:55→21:06)
[2018-04-26] MEDS: PANTOPRAZOLE 40 MG (PROTONIX) VIAL IV SCH ×2 (07:55→21:05)
[2018-04-26 07:57] VITALS: BP 159/83
--- NOTE | 2018-04-26 10:23 | Progress Note ---
Subjective Date Seen by Provider: Apr 26, 2018 Time Seen by Provider: 08:30 Subjective/Events-last exam Feeling a little bit better today than yesterday. NPO. Pain still in left upper quadrant, moderate to severe. Having nausea. Wbc down slightly today. Denies fever sweats chills shortness of breath or chest pain. Focused Exam Lactate Level 04/24/18 13:48: Lactic Acid Level 3.23*H 04/24/18 17:18: Lactic Acid Level 2.03*H Objective Exam Vital Signs Date Time Temp Pulse Resp B/P (MAP) Pulse Ox O2 Delivery O2 Flow Rate FiO2 04/26/18 07:57 97.8 104 20 159/83 (108) 90 Room Air 04/26/18 07:00 112 04/26/18 04:00 98.6 105 20 140/79 (99) 93 Room Air 04/26/18 01:00 120 04/26/18 00:00 98.7 102 28 139/78 (98) 92 Room Air 04/25/18 20:00 99.1 105 24 163/79 (107) 93 Room Air 04/25/18 19:51 102 04/25/18 16:00 98.9 96 20 140/73 (95) 94 Room Air 04/25/18 13:00 100 04/25/18 12:29 96.7 97 22 172/84 (113) 98 Room Air I & O 04/26/18 07:00 Intake Total 3270 ml Output Total 350 ml Balance 2920 ml Capillary Refill : Less Than 3 SecondsLess Than 3 Seconds General Appearance: Chronically ill, Obese HEENT: Other (Dry oral mucosa) Neck: Non Tender Respiratory: Chest Non Tender, Lungs Clear, No Accessory Muscle Use Cardiovascular: Regular Rate, Rhythm, No Gallop, Systolic Murmur Gastrointestinal: distended, other (fluid wave, tenderness left upper quadrant same as yesterday) Extremity: Non Tender, No Pedal Edema Neurologic/Psychiatric: Alert Skin: Warm/Dry, Pallor Results Lab Laboratory Tests 04/25/18 12:27: Ammonia 48H 04/25/18 17:41: Glucometer 121H 04/26/18 05:49: White Blood Count 15.0H, Red Blood Count 4.39, Hemoglobin 12.3, Hematocrit 38, Mean Corpuscular Volume 86, Mean Corpuscular Hemoglobin 28, Mean Corpuscular Hemoglobin Concent 33, Red Cell Distribution Width 20.7H, Platelet Count 165, Mean Platelet Volume 10.8H, Neutrophils (%) (Auto) 78H, Lymphocytes (%) (Auto) 13, Monocytes (%) (Auto) 8, Eosinophils (%) (Auto) 0, Basophils (%) (Auto) 0, Neutrophils # (Auto) 11.7H, Lymphocytes # (Auto) 2.0, Monocytes # (Auto) 1.3H, Eosinophils # (Auto) 0.0, Basophils # (Auto) 0.0, Sodium Level 138, Potassium Level 3.5L, Chloride Level 106, Carbon Dioxide Level 19L, Anion Gap 13, Blood Urea Nitrogen 28H, Creatinine 1.15, Estimat Glomerular Filtration Rate 48, BUN/ Creatinine Ratio 24, Glucose Level 99, Calcium Level 8.9, Corrected Calcium 9.6 , Total Bilirubin 1.2H, Aspartate Amino Transf (AST/SGOT) 69H, Alanine Aminotransferase (ALT/SGPT) 63H, Alkaline Phosphatase 137H, Total Protein 6.8, Albumin 3.1L Microbiology 04/24/18 Blood Culture - Preliminary, Resulted No growth 04/24/18 Gram Stain - Final, Resulted 04/24/18 Body Fluid Culture - Preliminary, Resulted No growth Assessment/Plan Assessment/Plan Assessment/Plan LUQ Abdominal pain ascites gastritis versus neoplasm with possible intramural air by ct cirrhosis Consideration sbp and asked to do paracentesis which was performed and took off 1860 mL of straw colored fluid. Protonix 40 mg bid IV IV abx to cover for sbp added Flagyl yesterda labs pending today will follow will plan egd today Clinical Quality Measures DVT/VTE Risk/Contraindication: Risk Factor Score Per Nursin RFS Level Per Nursing on Admit: 4+=Very High KVNG CAMACHO DO Apr 26, 2018 10:23
--- NOTE | 2018-04-26 11:29 | Progress Note-Hospitalist ---
Subjective HPI/CC On Admission Date Seen by Provider: Apr 26, 2018 Time Seen by Provider: 11:23 This is a 62-year-old white female who is a poor historian. She has a history of hepatitis be but does not have any awareness that she has cirrhosis of the liver. He says she got the hepatitis B from an old boyfriend. She was brought to the emergency room with complaints of increased falling and weakness over the last week or so. She complains of having pain all over but that she has had that for years. Her primary complaint this morning is that she's very very hungry and very very thirsty Subjective/Events-last exam Pt states she is having abd pain, nausea, and is hungry. She seems to be confused during my exam. Focused Exam Lactate Level 04/24/18 13:48: Lactic Acid Level 3.23*H 04/24/18 17:18: Lactic Acid Level 2.03*H Objective Exam Vital Signs Vital Signs Date Time Temp Pulse Resp B/P (MAP) Pulse Ox O2 Delivery O2 Flow Rate FiO2 04/27/18 09:34 97.4 106 16 133/62 (85) 94 Room Air Capillary Refill : Less Than 3 SecondsLess Than 3 Seconds General Appearance: No Apparent Distress, Chronically ill Respiratory: Lungs Clear, No Respiratory Distress Cardiovascular: Regular Rate, Rhythm, No Murmur Gastrointestinal: Soft, Distended; No Guarding; Tenderness (mild) Neurologic/Psychiatric: Alert, Disoriented Results/Procedures Lab Laboratory Tests 04/27/18 05:15 Patient resulted labs reviewed. Assessment/Plan Assessment and Plan Assess & Plan/Chief Complaint Sepsis Diagnosis/Problems Diagnosis/Problems (1) Severe sepsis Status: Acute Assessment & Plan: Severe sepsis on arrival- now resolved Concern for SBP Continue Rocephin and Flagyl fluid from paracentesis shows no growth (but done after antibiotics) Bacteremic x1 with strep pneumo White count improved (2) Spontaneous bacterial peritonitis Status: Acute Assessment & Plan: Continue on abx as above Cultures negative (3) Cirrhosis of liver due to hepatitis B Assessment & Plan: Hepatitis panel pending (4) Gastritis Assessment & Plan: Plan for EGD today Continue on PPI Qualifiers: Gastritis type: unspecified gastritis Chronicity: unspecified Gastritis bleeding: without bleeding Qualified Codes: K29.70 - Gastritis, unspecified, without bleeding Clinical Quality Measures DVT/VTE Risk/Contraindication: Risk Factor Score Per Nursin RFS Level Per Nursing on Admit: 4+=Very High ROSA M GALEANA MD Apr 26, 2018 11:29 am
[2018-04-26] MEDS: ONDANSETRON 4 MG/2 ML (SDV) Z0FRAN IV PRN (11:35)
[2018-04-26 12:00] VITALS: BP 152/68
[2018-04-26] MEDS ORDERED: LACTATED RINGERS 1,000 ML IV STA (13:19)
[2018-04-26] MEDS ORDERED: HURRICAINE EXT TUBE (BENZOCAINE) XX PRN (13:30)
[2018-04-26] MEDS ORDERED: LOSA25TA6 PO (13:50)
[2018-04-26] MEDS ORDERED: TIZA4TAB3 PO (13:50)
[2018-04-26] MEDS ORDERED: SERT100T8 PO (13:50)
[2018-04-26] MEDS ORDERED: POTA10TA10 PO (13:50)
[2018-04-26] MEDS ORDERED: HYDR-3820 PO (13:50)
[2018-04-26] MEDS ORDERED: PANT20TA2 PO (13:50)
[2018-04-26] MEDS ORDERED: AMIT50TA3 PO (13:50)
[2018-04-26] MEDS ORDERED: PREG50CA2 PO (13:50)
[2018-04-26] MEDS ORDERED: LEFL20TA18 PO (13:50)
[2018-04-26] MEDS ORDERED: RIZA10TA23 PO (13:50)
[2018-04-26] MEDS ORDERED: AMLO5TAB7 PO (13:50)
[2018-04-26] MEDS ORDERED: PROM25TA14 PO (13:50)
[2018-04-26] MEDS ORDERED: ASPI-983 PO (13:50)
[2018-04-26] MEDS ORDERED: ADAL40PE5 SQ (13:50)
[2018-04-26] MEDS ORDERED: INSU100I29 SQ (13:50)
[2018-04-26] MEDS ORDERED: FESO8TAB PO (13:50)
[2018-04-26] MEDS ORDERED: LOVA40TA2 PO (13:50)
[2018-04-26] MEDS ORDERED: DONE10TA41 PO (13:50)
[2018-04-26] MEDS ORDERED: INSU100I14 SQ (13:50)
[2018-04-26] MEDS ORDERED: RT-ALBUINH IH (13:50)
[2018-04-26] MEDS ORDERED: DAPA5TAB PO (13:50)
[2018-04-26] MEDS ORDERED: DIPH25CA79 PO (13:50)
[2018-04-26] MEDS ORDERED: BUSP15TA60 PO (13:50)
--- NOTE | 2018-04-26 14:15 | OPERATIVE REPORT ---
DATE OF SERVICE: 04/24/2018 PREOPERATIVE DIAGNOSIS: Cirrhosis with ascites, possible spontaneous bacterial peritonitis. POSTOPERATIVE DIAGNOSIS: Cirrhosis with ascites, possible spontaneous bacterial peritonitis. PROCEDURE: Ultrasound-guided paracentesis. SURGEON: Kvng Faye DO ANESTHESIA: 5 mL of 1% lidocaine. ESTIMATED BLOOD LOSS: Minimal. COMPLICATIONS: None. INDICATIONS: The patient is a 62-year-old female with cirrhosis and ascites. Concern for SBP. I was asked to do paracentesis for culturing of fluid. She understands risks and benefits and wished to proceed with procedure. Consent was signed on the chart. DESCRIPTION OF PROCEDURE: The patient was prepped and draped in a sterile fashion. The ultrasound was used by myself to find the pocket that was the largest for access. Local anesthetic was used to infiltrate the subcutaneous tissue. An 11 blade scalpel was used to make a stab incision which the safety paracentesis needle and catheter were then inserted into this fluid pocket; and once straw-colored fluid was withdrawn, the catheter was then advanced. Fluid was obtained for culture and cell counts. A total of 1860 mL were drawn from her abdomen. The catheter was then removed and a sterile bandage was applied. The patient tolerated procedure well without any complications. Job ID: [id number] DocumentID: [id number] Dictated Date: 04/26/2018 11:28:55 Electronic Parts Designer Date: 04/26/2018 14:14:56 Dictated By: KVNG FAYE DO
[2018-04-26] MEDS ORDERED: LACTATED RINGERS 1,000 ML IV ONE (14:56)
[2018-04-26] MEDS ORDERED: proPOfol 200 MG/20 ML (DIPRIVAN) VIAL IV ONE (15:18)
[2018-04-26 16:19] LABS: HEPATITIS C ANTIBODY C Non-Reactive (Non-Reactive)
[2018-04-26 16:23] VITALS: BP 147/74
[2018-04-26] MEDS: SUCRALFATE 1 GM (CARAFATE) TAB PO SCH ×2 (18:08→21:05)
--- NOTE | 2018-04-26 19:15 | Progress Note-Post Operative ---
Post-Operative Progess Note Surgeon (s)/Seed Sales Manager (s) Surgeon KVNG CAMACHO DO Seed Sales Manager: na Pre-Operative Diagnosis luq abdominal pain Post-Operative Diagnosis gastritis, antral mass/inflammation Procedure & Operative Findings Date of Procedure 04/26/18 Procedure Performed/Findings egd with biopsy antral mass Anesthesia Type per airfield engineer officer Estimated Blood Loss Estimated blood loss (mL): scant Specimens/Packing Specimens Removed antral mass KVNG CAMACHO DO Apr 26, 2018 19:15
[2018-04-26 20:22] VITALS: BP 179/81
[2018-04-26] MEDS: cefTRIAXone FOR IV USE 2,000 MG in NS (IVPB) 50 ML IV SCH (21:03)
--- NOTE | 2018-04-26 22:42 | OPERATIVE REPORT ---
DATE OF SERVICE: 04/26/2018 PREOPERATIVE DIAGNOSIS: Left upper quadrant abdominal pain. POSTOPERATIVE DIAGNOSES: Gastritis, antral mass/inflammation, hiatal hernia. PROCEDURE: EGD with biopsy of antral mass. SURGEON: Kvng Faye DO ANESTHESIA: Per WIRE BOUND BOX MACHINE HELPER. ESTIMATED BLOOD LOSS: Scant. COMPLICATIONS: None. INDICATIONS: The patient is a 62-year-old female who presented with significant abdominal pain. Her pain is in the left upper quadrant. She has CT scan findings suggestive of severe gastritis and question intramural air at the distal stomach/duodenal area. The patient was explained risks and benefits of procedure and wished to proceed with procedure. Consent was signed in the chart. DESCRIPTION OF PROCEDURE: The patient was taken to the endoscopy suite, placed in left lateral recumbent position. Timeout was performed. Scope was inserted in the mouth down the esophagus, stomach and into the duodenum without difficulty. No polyps, masses or ulcerations visualized within the duodenum. Scope was slowly retracted back to the stomach, which was insufflated. Significant erythematous changes throughout the entire stomach. At the antrum, a significant amount of inflammation and appearance of a mass and some polyps present. Biopsy of the mass was obtained. The scope was retroflexed noting a hiatal hernia and still again noting the significant erythematous changes of gastritis. Scope was returned to its normal position, slowly withdrawn into the distal esophagus, which had erythematous changes as well. Scope was slowly retracted back until completely removed, noting no other pathology except for some esophageal varices as well. Scope was then withdrawn until completely removed. She tolerated the procedure well without any complications. RECOMMENDATIONS: We will start her on clear liquid diet. We will add Carafate 1 gram 4 times a day to her already Protonix 40 mg b.i.d. Await pathology results. Job ID: [id number] DocumentID: [id number] Dictated Date: 04/26/2018 19:20:20 Tire Worker Date: 04/26/2018 22:41:49 Dictated By: KVNG FAYE DO
[2018-04-27] VITALS (8 sets, daily range): BP systolic 133–146; BP diastolic 62–87
[2018-04-27] MEDS: IBUPROFEN 800 MG (MOTRIN) TAB PO PRN ×2 (00:08→21:14)
[2018-04-27] MEDS: CATHETER FLUSH 10 ML SYR IV SCH ×3 (05:28→21:15)
[2018-04-27 05:31] LABS: BASOPHILS % (AUTO) 0 % (0-10); EOSINOPHILS % (AUTO) 0 % (0-10); HEMATOCRIT 35 % (35-52); HEMOGLOBIN 12.2 G/DL (11.5-16.0); LYMPHOCYTES % (AUTO) 16 % (12-44); MEAN CORPUSCULAR HEMOGLOBIN 29 PG (25-34); MEAN CORPUSCULAR HGB CONC 35 G/DL (32-36); MEAN CORPUSCULAR VOLUME 85 FL (80-99); MEAN PLATELET VOLUME 10.4 FL (7.4-10.4); MONOCYTES # (AUTO) 0.9 X 10^3 (0.0-1.0); MONOCYTES % (AUTO) 7 % (0-12); NEUTROPHILS # (AUTO) 9.6 X 10^3 (1.8-7.8); NEUTROPHILS % (AUTO) 77 % (42-75); PLATELET COUNT 155 10^3/uL (130-400); RED BLOOD COUNT 4.18 10^6/uL (4.35-5.85); RED CELL DISTRIBUTION WIDTH 20.4 % (10.0-14.5); WHITE BLOOD COUNT 12.4 10^3/uL (4.3-11.0)
[2018-04-27 05:46] LABS: ALANINE AMINOTRANSFERASE 58 U/L (0-55); ALBUMIN 2.9 GM/DL (3.2-4.5); ALKALINE PHOSPHATASE 111 U/L (40-136); AMMONIA 61 UMOL/L (11-32); BILIRUBIN,TOTAL 1.1 MG/DL (0.1-1.0); BUN/CREATININE RATIO 32; CALCIUM 8.6 MG/DL (8.5-10.1); CARBON DIOXIDE 16 MMOL/L (21-32); CHLORIDE 105 MMOL/L (98-107); CREATININE SERUM 0.93 MG/DL (0.60-1.30); GFR ESTIMATED > 60; GLUCOSE 88 MG/DL (70-105); POTASSIUM 3.7 MMOL/L (3.6-5.0); SODIUM 136 MMOL/L (135-145); TOTAL PROTEIN 6.6 GM/DL (6.4-8.2)
[2018-04-27] MEDS: SUCRALFATE 1 GM (CARAFATE) TAB PO SCH ×4 (06:03→21:14)
[2018-04-27] MEDS: metroNIDAZOLE 500MG/100ML IVPB 100 ML IV SCH ×3 (06:03→21:14)
[2018-04-27] MEDS: NS IV 1000 ML 1,000 ML IV SCH ×2 (07:54→14:49)
[2018-04-27] MEDS: MICONAZOLE 2% POWDER (DESENEX AF) 90 GM TOP SCH ×2 (08:21→21:16)
[2018-04-27] MEDS: PANTOPRAZOLE 40 MG (PROTONIX) VIAL IV SCH ×2 (08:21→21:14)
[2018-04-27] MEDS: ENOXAPARIN 40 MG/0.4 ML (LOVENOX) SYR SC SCH ×2 (08:22→21:15)
[2018-04-27] MEDS ORDERED: DAPA10TA PO (11:16)
--- NOTE | 2018-04-27 11:23 | Progress Note ---
Subjective Date Seen by a Provider: Apr 27, 2018 Time Seen by a Provider: 11:15 Subjective/Events-last exam patient feeling better today. tolerating clears. wbc trending down. denies n/v fever sweats chills shortness of breath or chest pain. Focused Exam Lactate Level 04/24/18 13:48: Lactic Acid Level 3.23*H 04/24/18 17:18: Lactic Acid Level 2.03*H Objective Exam Vital Signs Date Time Temp Pulse Resp B/P (MAP) Pulse Ox O2 Delivery O2 Flow Rate FiO2 04/27/18 09:34 97.4 106 16 133/62 (85) 94 Room Air 04/27/18 09:32 97.4 106 16 133/62 (85) 94 Room Air 04/27/18 08:00 Room Air 04/27/18 08:00 97.4 106 16 133/62 (85) 94 Room Air 04/27/18 07:00 105 04/27/18 04:00 98.2 102 16 144/87 (106) 90 Room Air 04/27/18 01:00 104 04/27/18 00:00 97.6 102 21 142/83 (102) 93 Room Air 04/26/18 20:22 98.7 107 20 179/81 (113) 95 Room Air 04/26/18 20:00 Room Air 04/26/18 19:00 120 04/26/18 16:23 97.7 103 20 147/74 (98) 96 Room Air 04/26/18 13:00 98 04/26/18 12:12 Room Air 04/26/18 12:00 96.0 101 20 152/68 (96) 90 Room Air I & O 04/27/18 07:00 Intake Total 1400 ml Output Total 850 ml Balance 550 ml Capillary Refill : Less Than 3 SecondsLess Than 3 Seconds General Appearance: No Apparent Distress, Chronically ill HEENT: Other (Dry oral mucosa) Neck: Non Tender Respiratory: Lungs Clear, No Respiratory Distress Cardiovascular: Regular Rate, Rhythm, No Murmur Gastrointestinal: distended, other (fluid wave, less tenderness left upper quadrant ) Extremity: Non Tender, No Pedal Edema Neurologic/Psychiatric: Alert, Oriented x3 Skin: Warm/Dry, Pallor Lymphatic: No Adenopathy Results Lab Laboratory Tests 04/27/18 05:15: White Blood Count 12.4H, Red Blood Count 4.18L, Hemoglobin 12.2, Hematocrit 35, Mean Corpuscular Volume 85, Mean Corpuscular Hemoglobin 29, Mean Corpuscular Hemoglobin Concent 35, Red Cell Distribution Width 20.4H, Platelet Count 155, Mean Platelet Volume 10.4, Neutrophils (%) (Auto) 77H, Lymphocytes (%) (Auto) 16 , Monocytes (%) (Auto) 7, Eosinophils (%) (Auto) 0, Basophils (%) (Auto) 0, Neutrophils # (Auto) 9.6H, Lymphocytes # (Auto) 2.0, Monocytes # (Auto) 0.9, Eosinophils # (Auto) 0.0, Basophils # (Auto) 0.0, Sodium Level 136, Potassium Level 3.7, Chloride Level 105, Carbon Dioxide Level 16L, Anion Gap 15H, Blood Urea Nitrogen 30H, Creatinine 0.93, Estimat Glomerular Filtration Rate > 60, BUN /Creatinine Ratio 32, Glucose Level 88, Calcium Level 8.6, Corrected Calcium 9.5 , Total Bilirubin 1.1H, Aspartate Amino Transf (AST/SGOT) 60H, Alanine Aminotransferase (ALT/SGPT) 58H, Alkaline Phosphatase 111, Ammonia 61H, Total Protein 6.6, Albumin 2.9L Microbiology 04/24/18 Blood Culture - Preliminary, Resulted No growth 04/24/18 Gram Stain - Final, Resulted 04/24/18 Body Fluid Culture - Preliminary, Resulted No growth Assessment/Plan Assessment/Plan Assessment/Plan LUQ Abdominal pain ascites gastritis and antral mass/inflammatory changes cirrhosis Consideration sbp and asked to do paracentesis which was performed and took off 1860 mL of straw colored fluid. Protonix 40 mg bid IV IV abx to cover for sbp added Flagyl wbc improving and feeling better will follow ] Clinical Quality Measures DVT/VTE Risk/Contraindication: Risk Factor Score Per Nursin RFS Level Per Nursing on Admit: 4+=Very High KVNG CAMACHO DO Apr 27, 2018 11:23
--- NOTE | 2018-04-27 12:13 | Progress Note-Hospitalist ---
Subjective HPI/CC On Admission Date Seen by Provider: Apr 27, 2018 Time Seen by Provider: 10:30 This is a 62-year-old white female who is a poor historian. She has a history of hepatitis be but does not have any awareness that she has cirrhosis of the liver. He says she got the hepatitis B from an old boyfriend. She was brought to the emergency room with complaints of increased falling and weakness over the last week or so. She complains of having pain all over but that she has had that for years. Her primary complaint this morning is that she's very very hungry and very very thirsty Subjective/Events-last exam Pt reports feeling better and is requesting DC home. She is still unable to get up and go to the bathroom on her own and is grimacing in pain during my exam. Focused Exam Lactate Level 04/24/18 13:48: Lactic Acid Level 3.23*H 04/24/18 17:18: Lactic Acid Level 2.03*H Objective Exam Vital Signs Vital Signs Date Time Temp Pulse Resp B/P (MAP) Pulse Ox O2 Delivery O2 Flow Rate FiO2 04/27/18 09:34 97.4 106 16 133/62 (85) 94 Room Air Capillary Refill : Less Than 3 SecondsLess Than 3 Seconds General Appearance: WD/WN, Other (appears in pain) Respiratory: Lungs Clear, No Respiratory Distress Cardiovascular: Regular Rate, Rhythm, No Murmur Gastrointestinal: Normal Bowel Sounds, Non Tender, Soft Neurologic/Psychiatric: Alert, Other (oriented to person and place only) Results/Procedures Lab Laboratory Tests 04/27/18 05:15 Patient resulted labs reviewed. Assessment/Plan Assessment and Plan Assess & Plan/Chief Complaint Sepsis Diagnosis/Problems Diagnosis/Problems (1) Severe sepsis Status: Acute Assessment & Plan: Severe sepsis on arrival- now resolved Concern for SBP Continue Rocephin and Flagyl fluid from paracentesis shows no growth (but done after antibiotics) Bacteremic x1 with strep pneumo- pansensitive White count improved (2) Spontaneous bacterial peritonitis Status: Acute Assessment & Plan: Continue on abx as above Cultures negative (3) Cirrhosis of liver due to hepatitis B Assessment & Plan: Hepatitis panel pending (4) Gastritis Assessment & Plan: EGD showed gastritis and antral mass Biopsies taken Continue PPI Qualifiers: Gastritis type: unspecified gastritis Chronicity: unspecified Gastritis bleeding: without bleeding Qualified Codes: K29.70 - Gastritis, unspecified, without bleeding (5) Debility Assessment & Plan: PT/OT consulted Discussed with family they report she falls almost daily at home and regularly soils herself They have tried to place her in a NH but patient has resisted Would benefit for at least SNF stay Labor Economics Professor consulted Clinical Quality Measures DVT/VTE Risk/Contraindication: Risk Factor Score Per Nursin RFS Level Per Nursing on Admit: 4+=Very High ROSA M GALEANA MD Apr 27, 2018 12:13 pm
--- NOTE | 2018-04-27 14:12 | Physical Therapy Evaluation ---
PT Evaluation-General Medical Diagnosis Admission Date Apr 24, 2018 at 15:33 Medical Diagnosis: severe sepsis/SBP Onset Date: Apr 24, 2018 Therapy Diagnosis Therapy Diagnosis: generalized weakness Height/Weight Height (Feet): 5 Height (Inches): 2.00 Weight (Pounds): 226 Weight (Ounces): 0.0 Precautions Precautions/Isolations: Standard Precautions Weight Bear Status Right Lower Extremity: Right Weight Bearing/Tolerated Left Lower Extremity: Left Weight Bearing/Tolerated Referral Physician: Aury Reason for Referral: Evaluation/Treatment Medical History Pertinent Medical History: COPD, DM, HTN, Rheumatic Heart Disease Additional Medical History hepatitis B Current History EMS secondary to multiple falls, hitting head, feels like legs are going to give out (does not uses FWW at home)/spontaneous peritonitis Reviewed History: Yes Prior/Core FIM Prior Level of Function Functional [place] Measure 0=Not Assessed/NA 4=Minimal Assistance 1=Total Assistance 5=Supervision or Setup 2=Maximal Assistance 6=Modified [place] 3=Moderate Assistance 7=Complete [place] Bed Mobility: 5 Transfers (B,C,W/C) (FIM): 5 Gait: 1 Per patient, she is in bed for the majority of the day and will get up, sometimes, to use the restroom. PT Evaluation-Current Subjective Patient reluctantly agrees to PT. Pain Numeric Pain Scale: 0-No Pain Location: No Pain Reported Objective Patient Orientation: Normal For Age Problem Solving: Fair Attachments: Rojas Catheter, IV ROM/Strength ROM Lower Extremities bilateral LE WNL Strength Lower Extremities 3+/5 grossly bilaterally Integumentary/Posture Integumentary refer to nursing notes Bladder Incontinence: Rojas Cath Posture WFL Neuromuscular (Tone, Coordination, Reflexes) intact, however, noted bilateral LE disuse atrophy Sensory Vision: Functional Hearing: Functional Sensation Right Lower Extremit: Impaired Sensation Left Lower Extremity: Impaired Transfers Functional [place] Measure 0=Not Assessed/NA 4=Minimal Assistance 1=Total Assistance 5=Supervision or Setup 2=Maximal Assistance 6=Modified [place] 3=Moderate Assistance 7=Complete [place] Transfers (B, C, W/C) (FIM): 5 Scootin Rollin Supine to/from Sit: 5 Sit to/from Stand: 5 Gait Mode of Locomotion: Both Anticipated Mode of Locomotion: Both Gait (FIM): 1 Distance (FIM): 1=up to 49 ft Distance: 20' x 2 Gait Level of Assist: 4 Gait Persons Needed: 1 Gait Assistive Device: FWW Comments/Gait Description Patient appeared to behaviorally, stop ambulating and "throw" herself on the bed. Functional gait prior to that episode. Patient demonstrated good strength during situation. Balance Sitting Static: Normal Sitting Dynamic: Normal Standing Static: Fair Standing Dynamic: Fair Assessment/Needs 62 y.o. inactive female, will be seen short term by skilled PT to address functional strength and mobility. Patient is limited by motivation to actively participate with therapy, strength and mobility. Rehab Potential: Poor Post Rehab Potential-Barriers: compliance PT Short Term Goals Short Term Goals Time Frame: May 05, 2018 Transfers (B,C,W/C) (FIM): 5 Gait (FIM): 1 Distance (FIM): 1=up to 49 ft Gait Distance Comment: 45' Gait Level of Assist: 5 Gait Assistive Device: FWW PT Plan Problem List Problem List: Activity Tolerance, Safety, Gait Treatment/Plan Treatment Plan: Continue Plan of Care Treatment Plan: Bed Mobility, Education, Functional Activity Ean, Functional Strength, Gait, Safety, Therapeutic Exercise, Transfers Treatment Duration: May 05, 2018 Frequency: 6 times per week Estimated Hrs Per Day: .5 hour per day Patient and/or Family Agrees t: Yes Discharge Recommendations Therapy D/C Recommendations: Home w/ Family Support, [facility] Placement, Snf (TCU/NH) Time/GCodes Time In: 1300 Time Out: 1326 Total Billed Treatment Time: 26 Total Billed Treatment 1 visit EVModC 26 min G Codes Necessary: SUNG Parson PT Apr 27, 2018 14:12
--- NOTE | 2018-04-27 15:17 | Occ Therapy Progress Note ---
Therapy Progress Note [id number] Pt seen in room, up in bed, asleep. Unable to stay awake long enough to answer questions or complete evaluation. She did indicate that her birthday was [birth year]. Will try again tomorrow. JANET ALLRED OT Apr 27, 2018 15:17
[2018-04-27] MEDS ORDERED: NS (IVPB) 50 ML ONE (21:05)
[2018-04-27] MEDS ORDERED: cefTRIAXone 1 GM/10 ML for IV (ROCEPHIN) ONE (21:05)
[2018-04-27] MEDS: fentaNYL INJECTION 100 MCG/2 ML AMP IVP PRN ×3 (21:15→23:06)
[2018-04-27] MEDS: cefTRIAXone FOR IV USE 2,000 MG in NS (IVPB) 50 ML IV SCH (21:15)
[2018-04-28] VITALS (7 sets, daily range): BP systolic 136–155; BP diastolic 66–81
[2018-04-28] MEDS: NS IV 1000 ML 1,000 ML IV SCH ×2 (00:57→06:02)
[2018-04-28] MEDS: fentaNYL INJECTION 100 MCG/2 ML AMP IVP PRN ×5 (00:57→23:38)
[2018-04-28] MEDS: metroNIDAZOLE 500MG/100ML IVPB 100 ML IV SCH ×3 (06:02→23:40)
[2018-04-28] MEDS: CATHETER FLUSH 10 ML SYR IV SCH ×3 (06:02→23:37)
[2018-04-28] MEDS: SUCRALFATE 1 GM (CARAFATE) TAB PO SCH ×4 (06:02→23:37)
[2018-04-28] MEDS: ONDANSETRON 4 MG/2 ML (SDV) Z0FRAN IV PRN (08:28)
[2018-04-28] MEDS: PANTOPRAZOLE 40 MG (PROTONIX) VIAL IV SCH ×2 (09:05→23:36)
[2018-04-28] MEDS: ENOXAPARIN 40 MG/0.4 ML (LOVENOX) SYR SC SCH ×2 (09:05→23:36)
[2018-04-28] MEDS: MICONAZOLE 2% POWDER (DESENEX AF) 90 GM TOP SCH ×2 (10:51→23:39)
--- NOTE | 2018-04-28 10:54 | Physical Therapy Progress Note ---
Therapy Progress Note Pt sitting in recliner upon arrival. Pt reports generalized high level pain all over but doesn't rate. T[employer] TEACHER reports to Nurse the pt's request for pain med. PT is noncompliant and will not assist with sitting up to put gait belt on, continues to pretend asleep. T[employer] TEACHER advises pt of need & benefits of PT but pt does not move. T[employer] ONE KINDERGARTEN TEACHER advises pt leaving w/o tx. 1, no tx rendered ADRIEL CORTEZ T[employer] ONE KINDERGARTEN TEACHER Apr 28, 2018 10:54
--- NOTE | 2018-04-28 11:46 | Occ Therapy Progress Note ---
Therapy Progress Note Attempted OT treatment at 1130. Pt sitting in chair, refused to participate in therapy at this time states "I just don't feel good." Education provided regarding benefits of therapy. Pt continues to refuse. Will attempt this afternoon. Pt sitting in chair with needs met. 1, visit MIGUEL CONTRERAS OT Apr 28, 2018 11:46
--- NOTE | 2018-04-28 13:07 | Progress Note-Hospitalist ---
Subjective HPI/CC On Admission Date Seen by Provider: Apr 28, 2018 Time Seen by Provider: 13:00 This is a 62-year-old white female who is a poor historian. She has a history of hepatitis be but does not have any awareness that she has cirrhosis of the liver. He says she got the hepatitis B from an old boyfriend. She was brought to the emergency room with complaints of increased falling and weakness over the last week or so. She complains of having pain all over but that she has had that for years. Her primary complaint this morning is that she's very very hungry and very very thirsty Subjective/Events-last exam Pt is sitting in bed while no complaints. I attempted to discuss her living situation with her andmy concerns but she stated she would not go to a [facility]. When asked multiple times about who lives in her house and would care for her she refused to answer the question. Objective Exam Vital Signs Vital Signs Date Time Temp Pulse Resp B/P (MAP) Pulse Ox O2 Delivery O2 Flow Rate FiO2 04/28/18 08:34 Room Air 04/28/18 08:00 97.7 107 16 148/74 (98) 94 Capillary Refill : Less Than 3 SecondsLess Than 3 Seconds General Appearance: Chronically ill Respiratory: Lungs Clear, No Respiratory Distress Cardiovascular: Regular Rate, Rhythm, No Murmur Gastrointestinal: Normal Bowel Sounds, Non Tender, Soft Neurologic/Psychiatric: Alert, Disoriented Results/Procedures Lab Patient resulted labs reviewed. Assessment/Plan Assessment and Plan Assess & Plan/Chief Complaint Sepsis Diagnosis/Problems Diagnosis/Problems (1) Severe sepsis Status: Acute Assessment & Plan: Severe sepsis on arrival- now resolved Concern for SBP Continue Rocephin and Flagyl fluid from paracentesis shows no growth (but done after antibiotics) Bacteremic x1 with strep pneumo- pansensitive White count improved (2) Spontaneous bacterial peritonitis Status: Acute Assessment & Plan: Continue on abx as above Cultures negative (3) Cirrhosis of liver due to hepatitis B Assessment & Plan: Hepatitis panel negative (4) Gastritis Assessment & Plan: EGD showed gastritis and antral mass Biopsies taken Continue PPI Qualifiers: Gastritis type: unspecified gastritis Chronicity: unspecified Gastritis bleeding: without bleeding Qualified Codes: K29.70 - Gastritis, unspecified, without bleeding (5) Debility Assessment & Plan: PT/OT consulted- patient has been unwilling to work with them Discussed with family they report she falls almost daily at home and regularly soils herself They have tried to place her in a NH but patient has resisted Would benefit for at least SNF stay Maintenance Advisor consulted May need adult welfare check when she discharges at home Clinical Quality Measures DVT/VTE Risk/Contraindication: Risk Factor Score Per Nursin RFS Level Per Nursing on Admit: 4+=Very High ROSA M GALEANA MD Apr 28, 2018 1:07 pm
--- NOTE | 2018-04-28 13:47 | Occ Therapy Progress Note ---
Therapy Progress Note Attempted OT evaluation at 1322. Pt resting in bed, opens eyes briefly when spoken to. Pt states she won't participate in therapy, but will not provide reason for refusal. Pt does state she is having pain, but does not state location or intensity. Pt in bed with needs met. Notified RN of pt's c/o pain and therapy refusal. 1, visit MIGUEL CONTRERAS OT Apr 28, 2018 13:47
[2018-04-28] MEDS ORDERED: DONEPEZIL 10 MG (ARICEPT) TAB PO SCH (21:00)
[2018-04-28] MEDS ORDERED: AMITRIPTYLINE 50 MG (ELAVIL) TAB PO SCH (21:00)
[2018-04-28] MEDS: busPIRone 15 MG (BUSPAR) TABLET PO SCH (23:37)
[2018-04-28] MEDS: cefTRIAXone FOR IV USE 2,000 MG in NS (IVPB) 50 ML IV SCH (23:40)
[2018-04-29 03:58] VITALS: BP 146/78
[2018-04-29 06:10] LABS: BASOPHILS % (AUTO) 0 % (0-10); EOSINOPHILS % (AUTO) 0 % (0-10); HEMATOCRIT 36 % (35-52); HEMOGLOBIN 12.6 G/DL (11.5-16.0); LYMPHOCYTES # (AUTO) 1.5 X 10^3 (1.0-4.0); LYMPHOCYTES % (AUTO) 19 % (12-44); MEAN CORPUSCULAR HEMOGLOBIN 29 PG (25-34); MEAN CORPUSCULAR HGB CONC 35 G/DL (32-36); MEAN CORPUSCULAR VOLUME 84 FL (80-99); MONOCYTES # (AUTO) 0.8 X 10^3 (0.0-1.0); MONOCYTES % (AUTO) 10 % (0-12); NEUTROPHILS # (AUTO) 5.5 X 10^3 (1.8-7.8); NEUTROPHILS % (AUTO) 71 % (42-75); PLATELET COUNT 177 10^3/uL (130-400); RED BLOOD COUNT 4.28 10^6/uL (4.35-5.85); RED CELL DISTRIBUTION WIDTH 20.7 % (10.0-14.5); WHITE BLOOD COUNT 7.8 10^3/uL (4.3-11.0)
[2018-04-29] MEDS: metroNIDAZOLE 500MG/100ML IVPB 100 ML IV SCH (06:11)
[2018-04-29] MEDS: SUCRALFATE 1 GM (CARAFATE) TAB PO SCH (06:14)
[2018-04-29] MEDS: CATHETER FLUSH 10 ML SYR IV SCH (06:15)
[2018-04-29 06:30] LABS: CALCIUM 9.1 MG/DL (8.5-10.1); CREATININE SERUM 1.09 MG/DL (0.60-1.30); POTASSIUM 3.6 MMOL/L (3.6-5.0)
[2018-04-29 08:00] VITALS: BP 151/67
--- NOTE | 2018-04-29 08:17 | Progress Note ---
Subjective Date Seen by a Provider: Apr 28, 2018 Time Seen by a Provider: 08:11 Subjective/Events-last exam Patient feeling better today. No new complaints. Unable to do basic needs or refusing to at this time. Denies n/v fever sweats chills shortness of breath or chest pain. Objective Exam Vital Signs Date Time Temp Pulse Resp B/P (MAP) Pulse Ox O2 Delivery O2 Flow Rate FiO2 04/29/18 03:58 97.8 103 20 146/78 (100) 96 Room Air 04/28/18 23:38 96.5 105 20 141/73 (95) 95 Room Air 04/28/18 20:35 97.1 110 20 143/70 (94) 93 Room Air 04/28/18 17:12 101 20 97 Room Air 04/28/18 16:46 98.6 113 16 153/74 (100) 94 Room Air 04/28/18 12:00 97.0 108 16 155/81 (105) 94 Room Air 04/28/18 08:34 Room Air I & O 04/29/18 07:00 Intake Total 1100 ml Output Total 900 ml Balance 200 ml Capillary Refill : Less Than 3 SecondsLess Than 3 Seconds General Appearance: Chronically ill HEENT: Other (Dry oral mucosa) Neck: Non Tender Respiratory: Lungs Clear, No Respiratory Distress Cardiovascular: Regular Rate, Rhythm, No Murmur Gastrointestinal: distended, other (fluid wave, less tenderness left upper quadrant ) Extremity: Non Tender, No Pedal Edema Neurologic/Psychiatric: Alert, Disoriented Skin: Warm/Dry, Pallor Lymphatic: No Adenopathy Results Lab Laboratory Tests 04/28/18 18:56: Glucometer 79 04/29/18 05:55: White Blood Count 7.8, Red Blood Count 4.28L, Hemoglobin 12.6, Hematocrit 36, Mean Corpuscular Volume 84, Mean Corpuscular Hemoglobin 29, Mean Corpuscular Hemoglobin Concent 35, Red Cell Distribution Width 20.7H, Platelet Count 177, Mean Platelet Volume 10.0, Neutrophils (%) (Auto) 71, Lymphocytes (%) (Auto) 19 , Monocytes (%) (Auto) 10, Eosinophils (%) (Auto) 0, Basophils (%) (Auto) 0, Neutrophils # (Auto) 5.5, Lymphocytes # (Auto) 1.5, Monocytes # (Auto) 0.8, Eosinophils # (Auto) 0.0, Basophils # (Auto) 0.0, Sodium Level 137, Potassium Level 3.6, Chloride Level 106, Carbon Dioxide Level 16L, Anion Gap 15H, Blood Urea Nitrogen 36H, Creatinine 1.09, Estimat Glomerular Filtration Rate 51, BUN/ Creatinine Ratio 33, Glucose Level 90, Calcium Level 9.1 Microbiology 04/24/18 Blood Culture - Preliminary, Resulted No growth 04/24/18 Gram Stain - Final, Complete 04/24/18 Body Fluid Culture - Final, Complete No growth Assessment/Plan Assessment/Plan Assessment/Plan LUQ Abdominal pain ascites gastritis and antral mass/inflammatory changes path ulceration and consistent with hemangioma cirrhosis Consideration sbp and asked to do paracentesis which was performed and took off 1860 mL of straw colored fluid. Protonix 40 mg bid IV IV abx to cover for sbp feeling better will follow ] Clinical Quality Measures DVT/VTE Risk/Contraindication: Risk Factor Score Per Nursin RFS Level Per Nursing on Admit: 4+=Very High KVNG CAMACHO DO Apr 29, 2018 08:17
--- NOTE | 2018-04-29 08:35 | Progress Note ---
Subjective Date Seen by a Provider: Apr 29, 2018 Time Seen by a Provider: 08:19 Subjective/Events-last exam Patient feeling well. No abdominal pain. Wanting to go home. Not performing basic needs on her own. No family at bedside. Patient not wanting to go to [facility]. Objective Exam Vital Signs Date Time Temp Pulse Resp B/P (MAP) Pulse Ox O2 Delivery O2 Flow Rate FiO2 04/29/18 03:58 97.8 103 20 146/78 (100) 96 Room Air 04/28/18 23:38 96.5 105 20 141/73 (95) 95 Room Air 04/28/18 20:35 97.1 110 20 143/70 (94) 93 Room Air 04/28/18 17:12 101 20 97 Room Air 04/28/18 16:46 98.6 113 16 153/74 (100) 94 Room Air 04/28/18 12:00 97.0 108 16 155/81 (105) 94 Room Air 04/28/18 08:34 Room Air I & O 04/29/18 07:00 Intake Total 1100 ml Output Total 900 ml Balance 200 ml Capillary Refill : Less Than 3 SecondsLess Than 3 Seconds General Appearance: Chronically ill HEENT: Other (Dry oral mucosa) Neck: Non Tender Respiratory: Lungs Clear, No Respiratory Distress Cardiovascular: Regular Rate, Rhythm, No Murmur Gastrointestinal: distended, other (fluid wave, no significant tenderness) Extremity: Non Tender, No Pedal Edema Neurologic/Psychiatric: Alert Skin: Warm/Dry, Pallor Lymphatic: No Adenopathy Results Lab Laboratory Tests 04/28/18 18:56: Glucometer 79 04/29/18 05:55: White Blood Count 7.8, Red Blood Count 4.28L, Hemoglobin 12.6, Hematocrit 36, Mean Corpuscular Volume 84, Mean Corpuscular Hemoglobin 29, Mean Corpuscular Hemoglobin Concent 35, Red Cell Distribution Width 20.7H, Platelet Count 177, Mean Platelet Volume 10.0, Neutrophils (%) (Auto) 71, Lymphocytes (%) (Auto) 19 , Monocytes (%) (Auto) 10, Eosinophils (%) (Auto) 0, Basophils (%) (Auto) 0, Neutrophils # (Auto) 5.5, Lymphocytes # (Auto) 1.5, Monocytes # (Auto) 0.8, Eosinophils # (Auto) 0.0, Basophils # (Auto) 0.0, Sodium Level 137, Potassium Level 3.6, Chloride Level 106, Carbon Dioxide Level 16L, Anion Gap 15H, Blood Urea Nitrogen 36H, Creatinine 1.09, Estimat Glomerular Filtration Rate 51, BUN/ Creatinine Ratio 33, Glucose Level 90, Calcium Level 9.1 Microbiology 04/24/18 Blood Culture - Preliminary, Resulted No growth 04/24/18 Gram Stain - Final, Complete 04/24/18 Body Fluid Culture - Final, Complete No growth Assessment/Plan Assessment/Plan Assessment/Plan LUQ Abdominal pain-improved ascites gastritis and antral mass/inflammatory changes path ulceration and consistent with hemangioma cirrhosis Consideration sbp and asked to do paracentesis which was performed and took off 1860 mL of straw colored fluid. Protonix 40 mg bid IV IV abx to cover for sbp feeling better patient unable to fulfil basic needs concerned if goes home, likely would benefit from [facility]. will sign off, call if needed. ] Clinical Quality Measures DVT/VTE Risk/Contraindication: Risk Factor Score Per Nursin RFS Level Per Nursing on Admit: 4+=Very High KVNG CAMACHO DO Apr 29, 2018 08:35
[2018-04-29] MEDS: PANTOPRAZOLE 40 MG (PROTONIX) VIAL IV SCH (08:57)
[2018-04-29] MEDS: busPIRone 15 MG (BUSPAR) TABLET PO SCH (08:57)
[2018-04-29] MEDS: ENOXAPARIN 40 MG/0.4 ML (LOVENOX) SYR SC SCH (08:57)
[2018-04-29] MEDS: MICONAZOLE 2% POWDER (DESENEX AF) 90 GM TOP SCH (08:58)
[2018-04-29] MEDS ORDERED: SERTRALINE 50 MG (ZOLOFT) TABLET PO SCH (09:00)
[2018-04-29] MEDS ORDERED: SERTRALINE 100 MG (ZOLOFT) TAB PO SCH (09:00)
--- NOTE | 2018-04-29 10:22 | Physical Therapy Progress Note ---
Therapy Progress Note Patient is in bed and sleeping. When PT attempted to wake patient, she attempted to hit this PT and yelled "NO!". PT continued to attempt, however, patient is uncooperative. SW notified. 1 ref SUNG BARAHONA PT Apr 29, 2018 10:22
--- NOTE | 2018-04-29 11:48 | Discharge Inst-Simple/Standard ---
Discharge Inst-Standard Patient Instructions/Follow Up Plan of Care/Instructions/FU: Please continue to take your medications as written. I have stopped your insulin as your blood sugars have been in the normal range without them. Please follow up with a primary care physician to follow up this hospital stay. Activity as Tolerated: Yes Discharge Diet: No Restrictions Return to The Hospital For: Confusion, fever, worsening abdominal pain, if you feel you are getting worse. Planned Outpatient Orders/Ref. Pneu Vac Indicated: Yes ROSA M GALEANA MD Apr 29, 2018 11:48 am
[2018-04-29] MEDS ORDERED: CEFD300C3 PO (11:50)
[2018-04-29 12:00] VITALS: BP 162/77
--- NOTE | 2018-04-29 14:27 | Discharge Summary-Hospitalist ---
Diagnosis/Chief Complaint Date of Admission Apr 24, 2018 at 3:33 pm Date of Discharge Discharge Date: Apr 29, 2018 Admission Diagnosis 1. Sepsis with strep coccus pneumonia on Gram stain of the blood cultures-on Rocephin day number 2 2. Cirrhosis of the liver with evidence of portal hypertension and ascites- peritoneal fluid cultures pending we'll check an ammonia level 3. History of hepatitis B- will check for hepatitis C as well 4. Thickened gastric mucosa of required a EGD-Dr. Faye to do early this next week- 5. Thrombocytopenia most likely secondary to sequestration because of the splenomegaly 6. Either mildly confused or low functioning state we'll check a serum ammonia level Discharge Diagnosis (1) Severe sepsis Status: Acute Assessment & Plan: Severe sepsis on arrival- now resolved Concern for SBP Continue Rocephin and Flagyl fluid from paracentesis shows no growth (but done after antibiotics) Bacteremic x1 with strep pneumo- pansensitive White count improved (2) Spontaneous bacterial peritonitis Status: Acute Assessment & Plan: Continue on abx as above Cultures negative (3) Cirrhosis of liver due to hepatitis B Assessment & Plan: Hepatitis panel negative (4) Gastritis Assessment & Plan: EGD showed gastritis and antral mass Biopsies taken Continue PPI (5) Debility Assessment & Plan: PT/OT consulted- patient has been unwilling to work with them Discussed with family they report she falls almost daily at home and regularly soils herself They have tried to place her in a NH but patient has resisted Would benefit for at least SNF stay Gate Technician consulted May need adult welfare check when she discharges at home Discharge Summary Procedures/Consulations Surgery- Dr Faye Discharge Physical Exam Allergies: Coded Allergies: Penicillins (Verified Allergy, Unknown, 04/24/18) doxycycline (Verified Allergy, Unknown, 04/24/18) levofloxacin (Verified Allergy, Unknown, 04/24/18) Vitals & I&Os Vital Signs Date Time Temp Pulse Resp B/P (MAP) Pulse Ox O2 Delivery O2 Flow Rate FiO2 04/29/18 12:00 98.0 108 20 162/77 (105) 95 Room Air General Appearance: No Apparent Distress, Chronically ill Respiratory: Lungs Clear, No Respiratory Distress Cardiovascular: Regular Rate, Rhythm, No Murmur Hospital Course Pt was admitted for sepsis presumably from SBP. Surgery was consulted for paracentesis. This was done after antibiotics so unfortunately peritoneal fluid was negative on culture. She did have a positive blood culture that grew strep pneumonia. She responded well to IV antibiotics. She appears to be very weak and debilitated though. I discussed with her at length the benefits of fpc placement and my medical recommendation that she receive care from a nursing facility. She adamantly declined this. I discussed with the family my concerns as well but patient again refused fpc placement to them as well. She was discharged home in stable condition. Labs (last 24 hrs) Laboratory Tests 04/28/18 18:56: Glucometer 79 04/29/18 05:55: White Blood Count 7.8, Red Blood Count 4.28L, Hemoglobin 12.6, Hematocrit 36, Mean Corpuscular Volume 84, Mean Corpuscular Hemoglobin 29, Mean Corpuscular Hemoglobin Concent 35, Red Cell Distribution Width 20.7H, Platelet Count 177, Mean Platelet Volume 10.0, Neutrophils (%) (Auto) 71, Lymphocytes (%) (Auto) 19 , Monocytes (%) (Auto) 10, Eosinophils (%) (Auto) 0, Basophils (%) (Auto) 0, Neutrophils # (Auto) 5.5, Lymphocytes # (Auto) 1.5, Monocytes # (Auto) 0.8, Eosinophils # (Auto) 0.0, Basophils # (Auto) 0.0, Sodium Level 137, Potassium Level 3.6, Chloride Level 106, Carbon Dioxide Level 16L, Anion Gap 15H, Blood Urea Nitrogen 36H, Creatinine 1.09, Estimat Glomerular Filtration Rate 51, BUN/ Creatinine Ratio 33, Glucose Level 90, Calcium Level 9.1 Microbiology 04/24/18 Blood Culture - Preliminary, Resulted No growth 04/24/18 Gram Stain - Final, Complete 04/24/18 Body Fluid Culture - Final, Complete No growth Patient resulted labs reviewed. Discussion & Recommendations Discharge Planning: >30 minutes discharge planning Discharge Home Medications: Active Scripts Active Cefdinir 300 Mg Capsule 300 Mg PO BID Reported Aspirin EC (Aspirin) 81 Mg Tablet.dr 81 Mg PO DAILY Buspirone HCl 15 Mg Tablet 15 Mg PO BID Losartan Potassium 25 Mg Tablet 25 Mg PO DAILY Sertraline HCl 100 Mg Tablet 150 Mg PO DAILY TAKES 1 & 1/2 (100MG) TABLETS Ventolin Hfa (Albuterol Sulfate) 1 Puff Puff 2 Puff IH TID PRN 1 PUFF = 90 MCG Donepezil HCl 10 Mg Tablet 10 Mg PO DAILY Maxalt (Rizatriptan Benzoate) 10 Mg Tablet 10 Mg PO UD PRN Amitriptyline HCl 50 Mg Tablet 50 Mg PO HS Protonix (Pantoprazole Sodium) 20 Mg Tablet.dr 20 Mg PO DAILY Leflunomide 20 Mg Tablet 20 Mg PO Q48H Promethazine Tablet (Promethazine HCl) 25 Mg Tablet 25 Mg PO Q6H PRN Lovastatin 40 Mg Tablet 40 Mg PO HS Humira Pen (Adalimumab) 40 Mg/0.4 Ml Pen.ij.kit 40 Mg SQ SA Hydrocodon-Acetaminophn 10-325 (Hydrocodone/Acetaminophen) 1 Each Tablet 1 Tab PO QID PRN MDD 5 Instructions to patient/family Please see electronic discharge instructions given to patient. Clinical Quality Measures DVT/VTE Risk/Contraindication: Risk Factor Score Per Nursin RFS Level Per Nursing on Admit: 4+=Very High Problem Qualifiers (1) Gastritis: Gastritis type: unspecified gastritis Chronicity: unspecified Gastritis bleeding: without bleeding Qualified Codes: K29.70 - Gastritis, unspecified, without bleeding ROSA M GALEANA MD Apr 29, 2018 2:27 pm
[2018-04-30] MEDS ORDERED: HYDR-3820 PO (15:37)
== END 2018-04-29 13:45 | disposition home or self-care (01) | DRG 871 ==
LOC: EDBD → EDUNIT# 13:33 → ER 13:34 → 4TH 15:33
PROVIDERS: ADMIT Internal Medicine; ATTEND Internal Medicine
PROC: 0W9G3ZX Drainage of Peritoneal Cavity, Percutaneous Approach, Diagnostic (ICD-10-PCS; principal; 2018-04-24)
PROC: 0DB78ZX Excision of Stomach, Pylorus, Via Natural or Artificial Opening Endoscopic, Diagnostic (ICD-10-PCS; 2018-04-26)
DX: A40.3 Sepsis due to Streptococcus pneumoniae (principal); K65.2 Spontaneous bacterial peritonitis; K29.70 Gastritis, unspecified, without bleeding; K74.60 Unspecified cirrhosis of liver; R18.8 Other ascites; K76.6 Portal hypertension; B19.10 Unspecified viral hepatitis B without hepatic coma; E66.9 Obesity, unspecified; Z68.41 Body mass index [BMI] 40.0-44.9, adult; D18.09 Hemangioma of other sites; D69.59 Other secondary thrombocytopenia; K44.9 Diaphragmatic hernia without obstruction or gangrene; I10 Essential (primary) hypertension; J44.9 Chronic obstructive pulmonary disease, unspecified; R35.0 Frequency of micturition; E11.9 Type 2 diabetes mellitus without complications; F41.9 Anxiety disorder, unspecified; F32.9 Major depressive disorder, single episode, unspecified; F12.90 Cannabis use, unspecified, uncomplicated; S00.83XA Contusion of other part of head, initial encounter; R51 Headache; L30.9 Dermatitis, unspecified; R29.6 Repeated falls; R53.81 Other malaise; W19.XXXA Unspecified fall, initial encounter; Z79.4 Long term (current) use of insulin
CPT/HCPCS: 36415; 70450; 71045; 72125; 74177; 80048; 80053; 81000; 82042; 82140; 82945; 82962; 83605; 83615; 84157; 85007; 85025; 85027; 85610; 86706; 86803; 87040; 87070; 87077; 87184; 87205; 87340; 89051; 96365; 96375

== ENCOUNTER 2018-04-30 00:25 | Observation (INO) | payer MEDICARE, OTHER ==
[~2018-04-30] VITALS: Ht 157.5 cm; Wt 102.5 kg
[~2018-04-30 00:25] MED LIST changes: +ADAL40PE5 SQ; +AMIT50TA3 PO; +AMLO5TAB7 PO; +ASPI-983 PO; +BUSP15TA60 PO; +CEFD300C3 PO; +DAPA10TA PO; +DAPA5TAB PO; +DIPH25CA79 PO; +DONE10TA41 PO; +FESO8TAB PO; +HYDR-3820 PO; +INSU100I14 SQ; +INSU100I29 SQ; +LEFL20TA18 PO; +LOSA25TA6 PO; +LOVA40TA2 PO; +PANT20TA2 PO; +POTA10TA10 PO; +PREG50CA2 PO; +PROM25TA14 PO; +RIZA10TA23 PO; +RT-ALBUINH IH; +SERT100T8 PO; +TIZA4TAB3 PO
[2018-04-30 00:56] LABS: BASOPHILS % (AUTO) 0 % (0-10); EOSINOPHILS % (AUTO) 0 % (0-10); HEMATOCRIT 36 % (35-52); HEMOGLOBIN 12.3 G/DL (11.5-16.0); LYMPHOCYTES # (AUTO) 1.1 X 10^3 (1.0-4.0); LYMPHOCYTES % (AUTO) 13 % (12-44); MEAN CORPUSCULAR HEMOGLOBIN 29 PG (25-34); MEAN CORPUSCULAR HGB CONC 34 G/DL (32-36); MEAN CORPUSCULAR VOLUME 83 FL (80-99); MEAN PLATELET VOLUME 9.4 FL (7.4-10.4); MONOCYTES # (AUTO) 0.8 X 10^3 (0.0-1.0); MONOCYTES % (AUTO) 9 % (0-12); NEUTROPHILS # (AUTO) 6.6 X 10^3 (1.8-7.8); NEUTROPHILS % (AUTO) 78 % (42-75); PLATELET COUNT 205 10^3/uL (130-400); RED BLOOD COUNT 4.31 10^6/uL (4.35-5.85); RED CELL DISTRIBUTION WIDTH 20.8 % (10.0-14.5); WHITE BLOOD COUNT 8.4 10^3/uL (4.3-11.0)
[2018-04-30 01:15] LABS: ALBUMIN 3.2 GM/DL (3.2-4.5); BILIRUBIN,TOTAL 1.5 MG/DL (0.1-1.0); CALCIUM 9.4 MG/DL (8.5-10.1); CREATININE SERUM 1.07 MG/DL (0.60-1.30); POTASSIUM 3.7 MMOL/L (3.6-5.0); TOTAL PROTEIN 7.4 GM/DL (6.4-8.2)
[2018-04-30 01:46] LABS: BILIRUBIN,URINE NEGATIVE (NEGATIVE); CLARITY,URINE VERY CLOUDY; COLOR,URINE AMBER; GLUCOSE, URINE (UA) NEGATIVE (NEGATIVE); KETONES,URINE 2+ (NEGATIVE); LEUKOCYTE ESTERASE ,URINE 2+ (NEGATIVE); NITRITE,URINE NEGATIVE (NEGATIVE); PH,URINE 6 (5-9); PROTEIN,URINE 2+ (NEGATIVE); UROBILINOGEN,URINE NORMAL (NORMAL)
--- NOTE | 2018-04-30 01:54 | ED General ---
General Chief Complaint: Abdominal/GI Problems Stated Complaint: ABD PAIN Nursing Triage Note: PT WAS DISCHARGED FROM HOSPITAL 04/29/18 FOR ABDOMINAL PAIN. PT COMES TO ER NOW FOR ABDOMINAL PAIN. FAMILY STATES THAT SHE IS NOT ACTING HERSELF AND HER ABDOMEN APPEARS MORE SWOLLEN TO FAMILY THAN NORMAL. NO FAMILY PRESENT OR COMING TO ER TO SPEAK TO PHYSICIANS. Nursing Sepsis Screen: No Definite Risk Source of Information: Patient Exam Limitations: No Limitations History of Present Illness Date Seen by Provider: Apr 30, 2018 Time Seen by Provider: 00:30 Initial Comments This 62-year-old woman presents to the emergency room via EMS with complaints of abdominal pain and altered mental status. She was dismissed from the hospital yesterday after being treated for sepsis with suspected bacterial peritonitis. She had multiple procedures done during her admission including paracentesis which showed no evidence of infection upon body fluid analysis. However, paracentesis was done after antibiotics were started. Patient also had an EGD performed with biopsy of an antral mass. Pathology demonstrated hemangioma without malignancy. Patient was treated with Rocephin during her hospital stay. Blood cultures grew strep pneumoniae. Per EMS, family notes a significant change in mental status. Patient seems confused and is not wanting to answer questions. Patient's daughter was later contacted. She reports that patient has had altered mental status for the past several days. Patient declined placement for rehabilitation services and was therefore discharged home yesterday. Family notes that after she returned home she was unable to bear weight or walk. They had to lay her on a sheet and dragged her into the home as they're only means of getting her into the house. She was also incontinent at home. They report that she continues to seem weak and confused. She has also complained of abdominal pain at home. Allergies and Home Medications Allergies Coded Allergies: Penicillins (Verified Allergy, Unknown, 04/24/18) doxycycline (Verified Allergy, Unknown, 04/24/18) levofloxacin (Verified Allergy, Unknown, 04/24/18) Home Medications Adalimumab 40 Mg/0.4 Ml Pen.ij.kit, 40 MG SQ Sa, (Reported) Albuterol Sulfate 1 Puff Puff, 2 PUFF IH TID PRN for SHORTNESS OF BREATH, ( Reported) 1 PUFF = 90 MCG Amitriptyline HCl 50 Mg Tablet, 50 MG PO HS, (Reported) Aspirin 81 Mg Tablet.dr, 81 MG PO DAILY, (Reported) Buspirone HCl 15 Mg Tablet, 15 MG PO BID, (Reported) Cefdinir 300 Mg Capsule, 300 MG PO BID Prescribed by: ROSA M JEFFERS on 04/29/18 1150 Donepezil HCl 10 Mg Tablet, 10 MG PO DAILY, (Reported) Hydrocodone/Acetaminophen 1 Each Tablet, 1 TAB PO QID PRN for PAIN-MODERATE, ( Reported) Leflunomide 20 Mg Tablet, 20 MG PO Q48H, (Reported) Losartan Potassium 25 Mg Tablet, 25 MG PO DAILY, (Reported) Lovastatin 40 Mg Tablet, 40 MG PO HS, (Reported) Pantoprazole Sodium 20 Mg Tablet.dr, 20 MG PO DAILY, (Reported) Promethazine HCl 25 Mg Tablet, 25 MG PO Q6H PRN for NAUSEA/VOMITING-1ST LINE, ( Reported) Rizatriptan Benzoate 10 Mg Tablet, 10 MG PO UD PRN for MIGRAINE, (Reported) Sertraline HCl 100 Mg Tablet, 150 MG PO DAILY, (Reported) TAKES 1 & 1/2 (100MG) TABLETS Patient Home Medication List Home Medication List Reviewed: Yes Review of Systems Review of Systems Constitutional: no symptoms reported EENTM: see HPI Respiratory: no symptoms reported Cardiovascular: no symptoms reported Gastrointestinal: see HPI Genitourinary: no symptoms reported : No Musculoskeletal: no symptoms reported Skin: no symptoms reported Psychiatric/Neurological: See HPI Hematologic/Lymphatic: No Symptoms Reported Immunological/Allergic: no symptoms reported Past Lvzhdoz-Ffggbz-Ztyrdc Hx Patient Social History Alcohol Use: Denies Use Recreational Drug Use: Yes Drug of Choice: MARIJUANA Type Used: Cigarettes Recent Foreign Travel: No Contact w/Someone Who Travel: No Recent Infectious Disease Expo: No Recent Hopitalizations: Yes (04/29/2018) Physical Abuse: No Sexual Abuse: No Seasonal Allergies Seasonal Allergies: No Past Medical History Surgeries: Yes (BI LAT KNEES, RT FOOT, NECK) Section, Orthopedic Respiratory: Yes COPD Cardiac: Yes Hypertension Neurological: Yes Genitourinary: Yes (FREQUENCY) Gastrointestinal: Yes (Hepatitis B) Hepatitis Musculoskeletal: Yes Degenerate Disk Disease, Osteoporosis, Arthritis, Fibromyalgia, Rheumatoid Arthritis, Chronic Back Pain Endocrine: Yes (IDDM PER FAMILY) Diabetes, Insulin dep HEENT: No Loss of Vision: Denies Hearing Impairment: Denies Cancer: No Psychosocial: Yes (PER FAMILY) Sleep Difficulties, Anxiety, PTSD, Violent Behavior, Depression Integumentary: Yes Eczema Physical Exam Vital Signs Vital Signs - First Documented 04/30/18 04/30/18 00:25 04:36 Temp 97.6 Pulse 82 Resp 14 B/P (MAP) 142/88 (106) Pulse Ox 100 O2 Delivery Room Air Capillary Refill : Less Than 3 Seconds Height, Weight, BMI Height: 5'2.00" Weight: 226lbs. 0.0oz. [id number]; 39.5 BMI Method:Stated General Appearance: WD/WN, Mild Distress HEENT: PERRL/EOMI, Normal ENT Inspection Neck: Normal Inspection Respiratory: Lungs Clear, Normal Breath Sounds, No Accessory Muscle Use, No Respiratory Distress Cardiovascular: No Edema, No Murmur, Tachycardia Gastrointestinal: Normal Bowel Sounds, Soft, Tenderness (Gen. a central abdominal tenderness, mild) Extremity: Normal Inspection, No Pedal Edema Neurologic/Psychiatric: Alert, No Motor/Sensory Deficits, Other (disoriented to place and month. Oriented to age) Skin: Normal Color, Warm/Dry Focused Exam Lactate Level 04/30/18 00:44: Lactic Acid Level 1.28 Lactic Acid Level Progress/Results/Core Measures Suspected Sepsis Recent Fever Within 48 Hours: No Infection Criteria Present: None New/Unexplained Altered Menta: No Sepsis Screen: No Definite Risk SIRS Temperature:97.6 Pulse: 82 Respiratory Rate: 14 Laboratory Tests 04/30/18 00:44: White Blood Count 8.4 Blood Pressure 142 /88 Mean: 106 04/30/18 00:44: Lactic Acid Level 1.28 Laboratory Tests 04/30/18 00:44: Creatinine 1.07, INR Comment 1.8H, Platelet Count 205, Total Bilirubin 1.5H Results/Orders Lab Results Laboratory Tests Test 04/30/18 00:44 04/30/18 01:04 04/30/18 01:30 Range/Units White Blood Count 8.4 4.3-11.0 10^3/uL Red Blood Count 4.31 L 4.35-5.85 10^6/uL Hemoglobin 12.3 11.5-16.0 G/DL Hematocrit 36 35-52 % Mean Corpuscular Volume 83 80-99 FL Mean Corpuscular Hemoglobin 29 25-34 PG Mean Corpuscular Hemoglobin Concent 34 32-36 G/DL Red Cell Distribution Width 20.8 H 10.0-14.5 % Platelet Count 205 130-400 10^3/uL Mean Platelet Volume 9.4 7.4-10.4 FL Neutrophils (%) (Auto) 78 H 42-75 % Lymphocytes (%) (Auto) 13 12-44 % Monocytes (%) (Auto) 9 0-12 % Eosinophils (%) (Auto) 0 0-10 % Basophils (%) (Auto) 0 0-10 % Neutrophils # (Auto) 6.6 1.8-7.8 X 10^3 Lymphocytes # (Auto) 1.1 1.0-4.0 X 10^3 Monocytes # (Auto) 0.8 0.0-1.0 X 10^3 Eosinophils # (Auto) 0.0 0.0-0.3 10^3/uL Basophils # (Auto) 0.0 0.0-0.1 10^3/uL Prothrombin Time 21.1 H 12.2-14.7 SEC INR Comment 1.8 H 0.8-1.4 Sodium Level 138 135-145 MMOL/L Potassium Level 3.7 3.6-5.0 MMOL/L Chloride Level 106 98-107 MMOL/L Carbon Dioxide Level 17 L 21-32 MMOL/L Anion Gap 15 H 5-14 MMOL/L Blood Urea Nitrogen 37 H 7-18 MG/DL Creatinine 1.07 0.60-1.30 MG/DL Estimat Glomerular Filtration Rate 52 BUN/Creatinine Ratio 35 Glucose Level 83 70-105 MG/DL Lactic Acid Level 1.28 0.50-2.00 MMOL/L Calcium Level 9.4 8.5-10.1 MG/DL Corrected Calcium 10.0 8.5-10.1 MG/DL Total Bilirubin 1.5 H 0.1-1.0 MG/DL Aspartate Amino Transf (AST/SGOT) 76 H 5-34 U/L Alanine Aminotransferase (ALT/SGPT) 58 H 0-55 U/L Alkaline Phosphatase 122 40-136 U/L C-Reactive Protein High Sensitivity 7.12 H 0.00-0.50 MG/DL Total Protein 7.4 6.4-8.2 GM/DL Albumin 3.2 3.2-4.5 GM/DL Lipase 137 H 8-78 U/L Ammonia 53 H 11-32 UMOL/L Urine Color RAN H Urine Clarity VERY CLOUDY H Urine pH 6 5-9 Urine Specific [place] 1.020 1.016-1.022 Urine Protein 2+ H NEGATIVE Urine Glucose (UA) NEGATIVE NEGATIVE Urine Ketones 2+ H NEGATIVE Urine Nitrite NEGATIVE NEGATIVE Urine Bilirubin NEGATIVE NEGATIVE Urine Urobilinogen NORMAL NORMAL MG/DL Urine Leukocyte Esterase 2+ H NEGATIVE Urine RBC (Auto) 1+ H NEGATIVE Urine RBC NONE /HPF Urine WBC 2-5 /HPF Urine Squamous Epithelial Cells >50 H /HPF Urine Crystals NONE /LPF Urine Bacteria TRACE /HPF Urine Casts NONE /LPF Urine Mucus SMALL H /LPF Urine Yeast MODERATE H /HPF Urine Culture Indicated YES My Orders Orders - BILLIE SUBRAMANIAN MD Cbc With Automated Diff (04/30/18 00:47) Comprehensive Metabolic Panel (04/30/18 00:47) Hs C Reactive Protein (04/30/18 00:47) Ua Culture If Indicated (04/30/18 00:47) Saline Lock/Iv-Start (04/30/18 00:47) Chest 1 View, Ap/Pa Only (04/30/18 00:47) Lipase (04/30/18 00:47) Ammonia (04/30/18 01:00) Blood Culture (04/30/18 01:21) Lactic Acid Analyzer (04/30/18 01:21) Protime With Inr (04/30/18 01:45) Urine Culture (04/30/18 01:30) Vital Signs/I&O 04/30/18 04/30/18 04/30/18 04/30/18 00:25 01:33 03:58 04:36 Temp 97.6 97.6 97.6 97.8 Pulse 82 82 69 109 Resp 14 14 12 20 B/P (MAP) 142/88 (106) 142/88 140/86 163/85 (111) Pulse Ox 100 100 100 94 O2 Delivery Room Air Capillary Refill : Less Than 3 Seconds Blood Pressure Mean: 106 Diagnostic Imaging Diagonstic Imaging: Xray Plain Films/CT/US/NM/MRI: chest Comments Chest x-ray viewed by me. Report not yet available. Compared with prior. No acute abnormalities appreciated. Departure Communication (Admissions) Time/Spoke to Admitting Phy: 02:35 Case was discussed with Dr. Corrigan. Does not appear safe to return this patient home as it appears family will have difficulty adequately caring for her. We therefore believe admitting her is the best option at present. Dr. Diaz requested that I not right orders for antibiotics, lactulose, or other medical therapies. He would like Dr. Jeffers to review the case. Time/Spoke to Consulting Phy: 02:40 Dr. Faye was notified of consultation by message. Impression Primary Impression: Altered mental status Qualified Codes: R41.82 - Altered mental status, unspecified Additional Impressions: Generalized weakness Abdominal pain Qualified Codes: R10.84 - Generalized abdominal pain Cirrhosis of liver due to hepatitis B Disposition: ADMITTED INPATIENT Condition: Stable Admissions Decision to Admit Reason: Admit from ER (General) Decision to Admit/Date: Apr 30, 2018 Time/Decision to Admit Time: 02:35 Departure-Patient Inst. Referrals: NO,LOCAL PHYSICIAN (PCP/Family) Primary Care Physician BILLIE SUBRAMANIAN MD Apr 30, 2018 01:54
[2018-04-30 01:58] LABS: BACTERIA,URINE TRACE /HPF; SQUAMOUS EPITHELIAL CELL,UR >50 /HPF; YEAST,URINE MODERATE /HPF
[2018-04-30 02:02] LABS: INR 1.8 (0.8-1.4); PROTHROMBIN TIME PATIENT 21.1 SEC (12.2-14.7)
[2018-04-30 04:36] VITALS: BP 163/85
[2018-04-30] MEDS ORDERED: ONDANSETRON 4 MG/2 ML (SDV) Z0FRAN IV PRN (05:15)
[2018-04-30 08:00] VITALS: BP 147/62
--- NOTE | 2018-04-30 08:25 | Diagnostic Imaging Report ---
INDICATION: Abdominal pain. TECHNIQUE: Single view chest 1:00 a.m.. CORRELATION STUDY: 04/24/2018 FINDINGS: Overall limited depth of inspiration with crowding and atelectasis of the lung bases. Heart size enlarged with a mild vascular congestion appears adversely increased from prior study. Cervical spinal fusion hardware present. Calcification of soft tissues neck suspect for carotid artery calcification. IMPRESSION: 1. Limited depth of inspiration. Given this, there does appear to be cardiac enlargement with borderline vasculature. Dictated by: Dictated on workstation # [id number]
--- NOTE | 2018-04-30 08:29 | History & Physical-Hospitalist ---
History of Present Illness HPI/Chief Complaint Pt is a 62yoCF known to me from recent admission who was admitted for inability to care for herself at home. She was just admitted to the hospitalist service for 5 days for sepsis from SBP. She was medically stable for discharge yesterday but felt to require fdc placement for her safety. She adamantly refused this and family was willing to take her home as a trial. She was discharged yesterday and family was unable to even get her in her home and reportedly had to use a sheet to drag her in to the house. She is unwilling to tell me any of this history. She nods her head to state she knows why she is here and where she is but will not answer any questions. This is similar to her mental state when she was here during her first admission. Source: patient Date Seen 04/30/18 Time Seen by a Provider: 08:29 Attending Physician Malachi Corrigan MD PCP No,Local Physician Referring Physician Date of Admission Apr 30, 2018 at 03:28 Home Medications & Allergies Home Medications Reviewed patient Home Medication Reconciliation performed by pharmacy medication reconciliations design technician and/or nursing. Patients Allergies have been reviewed. Allergies Allergies Coded Allergies Penicillins (Verified Allergy, Unknown, 04/24/18) doxycycline (Verified Allergy, Unknown, 04/24/18) levofloxacin (Verified Allergy, Unknown, 04/24/18) Past Kmtbquf-Merogk-Dquaus Hx Past Med/Social Hx: Reviewed Nursing Past Med/Soc Hx Patient Social History Alcohol Use: Denies Use Recreational Drug Use: Yes Drug of Choice: MARIJUANA Type Used: Cigarettes Physical Abuse Screen: No Sexual Abuse: No Recent Foreign Travel: No Contact w/other who traveled: No Recent Hopitalizations: Yes (04/29/2018) Recent Infectious Disease Expo: No Seasonal Allergies Seasonal Allergies: No Past Medical History Surgeries: Section, Orthopedic Cardiac: Hypertension Gastrointestinal: Hepatitis, Cirrhosis Musculoskeletal: Degenerate Disk Disease, Osteoporosis, Arthritis, Fibromyalgia , Rheumatoid Arthritis, Chronic Back Pain Loss of Vision: Denies Hearing Impairment: Denies Psychosocial: Sleep Difficulties, Anxiety, PTSD, Violent Behavior, Depression Skin/Integumentary: Eczema Family History Reviewed Nursing Family Hx Review of Systems ROS-Unable to Obtain: Would not answer any questions Constitutional: see HPI Physical Exam Physical Exam Vital Signs Vital Signs - First Documented 04/30/18 04/30/18 00:25 04:36 Temp 97.6 Pulse 82 Resp 14 B/P (MAP) 142/88 (106) Pulse Ox 100 O2 Delivery Room Air Capillary Refill : Less Than 3 Seconds Height, Weight, BMI Height: 5'2.00" Weight: 226lbs. 0.0oz. 102.989005ru; 39.5 BMI Method:Stated General Appearance: No Apparent Distress, Chronically ill, Obese HEENT: Moist Mucous Membranes; No Scleral Icterus (L), No Scleral Icterus (R) Neck: Normal Inspection; No JVD Respiratory: Lungs Clear, No Respiratory Distress Cardiovascular: Regular Rate, Rhythm, No Murmur Gastrointestinal: Normal Bowel Sounds, Non Tender, Soft, Other (no obvious distention or fluid wave but limited exam by habitus) Extremity: No Calf Tenderness, Pedal Edema (trace) Neurologic/Psychiatric: Alert Results Results/Procedures Labs Laboratory Tests 04/30/18 00:44 Patient resulted labs reviewed. Assessment/Plan Admission Diagnosis Debility Admission Status: Observation Diagnosis/Problems Diagnosis/Problems (1) Debility Assessment & Plan: Unable to care for self at home and family unable to as well director clinical information services consulted, appreciate assistance PT/OT There is not DPOA or guardianship arranged so will discuss with SW and family options for placement per family wishes (2) Cirrhosis of liver due to hepatitis B Assessment & Plan: Lactolose mildly elevated Will try Lactulose to see if helps Discussed with Dr Faye regarding ascites Will get usg and possible paracentesis pending results (3) Non-insulin dependent type 2 diabetes mellitus Assessment & Plan: Previously was on insulin but blood sugars WNL Hold all diabetic meds and trend (4) Gastritis Assessment & Plan: Continue on PPI Qualifiers: Gastritis type: unspecified gastritis Chronicity: unspecified Gastritis bleeding: without bleeding Qualified Codes: K29.70 - Gastritis, unspecified, without bleeding (5) Discharge planning issues Assessment & Plan: Pt still refusing NH placement Will continue to discuss with family Clinical Quality Measures DVT/VTE Risk/Contraindication: Risk Factor Score Per Nursin RFS Level Per Nursing on Admit: 4+=Very High ROSA M GALEANA MD Apr 30, 2018 8:29 am
[2018-04-30] MEDS ORDERED: HYDROcodone/APAP 10 MG/325 MG (LORTAB) TAB PO PRN (08:30)
[2018-04-30] MEDS ORDERED: SUMAtriptan 50 MG (IMITREX) TAB PO PRN (08:30)
[2018-04-30] MEDS ORDERED: PROMETHAZINE 25 MG (PHENERGAN) TAB PO PRN (08:30)
[2018-04-30] MEDS ORDERED: RIZATRIPTAN BENZOATE 10 MG PO PRN (08:30)
[2018-04-30] MEDS ORDERED: NON-FORMULARY MEDICATION 1 EA EA (Donepezil HCl 10 MG) PO SCH (09:00)
[2018-04-30] MEDS ORDERED: LACTULOSE SYRUP 10GM/15ML (ENULOSE) 30ML UDC PO SCH (09:00)
[2018-04-30] MEDS ORDERED: NON-FORMULARY MEDICATION 1 EA EA (Pantoprazole Sodium (Protonix) 20 MG) PO SCH (09:00)
[2018-04-30] MEDS ORDERED: CEFDINIR 300 MG (OMNICEF) CAP PO SCH (09:00)
[2018-04-30] MEDS ORDERED: busPIRone 15 MG (BUSPAR) TABLET PO SCH (09:00)
[2018-04-30] MEDS ORDERED: DONEPEZIL 10 MG (ARICEPT) TAB PO SCH (09:00)
[2018-04-30] MEDS ORDERED: NON-FORMULARY MEDICATION 1 EA EA (Cefdinir 300 MG) PO SCH (09:00)
[2018-04-30] MEDS ORDERED: SERTRALINE 100 MG (ZOLOFT) TAB PO SCH (09:00)
[2018-04-30] MEDS ORDERED: PANTOPRAZOLE 20 MG TABLET (PROTONIX) PO SCH (09:00)
[2018-04-30] MEDS ORDERED: FLU QUADRIvalent (5+ YOA) 2018-2019 (AFLURIA) 0.5 ML IM ONE (11:15)
--- NOTE | 2018-04-30 11:20 | Physical Therapy Evaluation ---
PT Evaluation-General Medical Diagnosis Admission Date Apr 30, 2018 at 03:28 Medical Diagnosis: AMS/abdominal pain Onset Date: Apr 29, 2018 Therapy Diagnosis Therapy Diagnosis: severe debility/weakness Height/Weight Height (Feet): 5 Height (Inches): 2.00 Weight (Pounds): 226 Weight (Ounces): 0.0 Precautions Precautions/Isolations: Fall Prevention, Standard Precautions Weight Bear Status Right Lower Extremity: Right Weight Bearing/Tolerated Left Lower Extremity: Left Weight Bearing/Tolerated Referral Physician: Aury Reason for Referral: Evaluation/Treatment Medical History Pertinent Medical History: COPD, DM, HTN, Rheumatic Heart Disease Additional Medical History cirrhosis, Hep. B, drug use Current History Patient dismissed from hospital 04/29/18 to home with family. Family had to lay on a blanket and drag her into the home where she was unable to assist or be continent with bodily fluids. EMS for patient return Reviewed History: Yes Social History Home: Single Level Current Living Status: Other Family Prior/Core FIM Prior Level of Function Functional [place] Measure 0=Not Assessed/NA 4=Minimal Assistance 1=Total Assistance 5=Supervision or Setup 2=Maximal Assistance 6=Modified [place] 3=Moderate Assistance 7=Complete [place] Bed Mobility: 5 Transfers (B,C,W/C) (FIM): 5 Gait: 1 ambulates short distances only PT Evaluation-Current Subjective Patient is in bed. Does not speak. Answers by nodding and shaking her head. Pain Numeric Pain Scale: 5-Moderate Pain Location: Right, Lower Location Body Site: Abdomen Pain Description: Pressure Comment: FLACC Objective Patient Orientation: Confused, Non-Verbal/Aphasic Problem Solving: Poor Attachments: Rojas Catheter ROM/Strength ROM Lower Extremities bilateral LE WFL Strength Lower Extremities 3-/5 grossly with no formal testing secondary to patient resisting all mobility Integumentary/Posture Integumentary refer to nursing notes Bowel Incontinence: Yes Bladder Incontinence: Rojas Cath Neuromuscular (Tone, Coordination, Reflexes) severely diminished due to weakness and inactivity Sensory Vision: Functional Hearing: Functional Sensation Right Lower Extremit: Impaired Sensation Left Lower Extremity: Impaired Transfers Functional [place] Measure 0=Not Assessed/NA 4=Minimal Assistance 1=Total Assistance 5=Supervision or Setup 2=Maximal Assistance 6=Modified [place] 3=Moderate Assistance 7=Complete [place] Transfers (B, C, W/C) (FIM): 1 Scootin Rollin Patient is very physically resistive with attempt to mobilize in bed and to sit EOB. Patient was shaking her head "no" and was able to return her LE's to a straightened position in bed. Assisted US on mobility. Assessment/Needs 62 y.o. female, will benefit from skilled PT to address functional strength and mobility to improve current LOF. Patient is currently having difficulty with participating with therapy. Physician is addressing all possible medical reasons. PT to increase activity as testing is completed and as indicated. Rehab Potential: Guarded PT [facility] Goals Funds Development Director Goals PT [facility] Goals Time Frame: May 29, 2018 Transfers (B,C,W/C) (FIM): 3 Gait (FIM): 1 Gait distance (FIM): 1=up to 49 ft Distance: 10' Gait Level of Assist: 3 Gait Assistive Device: FWW PT Plan Problem List Problem List: Activity Tolerance, Functional Strength, Safety, Balance, Gait, Transfer, Bed Mobility Treatment/Plan Treatment Plan: Continue Plan of Care Treatment Plan: Bed Mobility, Education, Functional Activity Ean, Functional Strength, Gait, Safety, Therapeutic Exercise, Transfers Treatment Duration: May 29, 2018 Frequency: 6 times per week Estimated Hrs Per Day: .5 hour per day Patient and/or Family Agrees t: Yes Discharge Recommendations Therapy D/C Recommendations: [facility] Placement, Senior Living (TCU/NH) Time/GCodes Time In: 1050 Time Out: 1110 Total Billed Treatment Time: 20 Total Billed Treatment 1 visit EVHighC 20 min G Codes Necessary: Yes PT/OT Therapy GCodes Therapy Functional Limitation: Physical Therapy Test(s)/Tool used to determine: FIM Functional Limitation-Current Charge Code: MOBCUR Modifier: CN Functional Limitation-Goal Charge Code: MOBGOAL Modifier: CL SUNG BARAHONA PT Apr 30, 2018 11:20
[2018-04-30 12:00] VITALS: BP 132/70
--- NOTE | 2018-04-30 13:00 | Diagnostic Imaging Report ---
PROCEDURE: US abdomen complete. TECHNIQUE: Multiple real-time grayscale images were obtained over the abdomen in various projections. INDICATION: Ascites, abdominal pain. FINDINGS: There are no prior ultrasound examinations available for comparison. The CT abdomen/pelvis exam of 04/24/2018 did note cirrhosis, borderline splenomegaly, and a moderate amount of ascites. There was also marked thickening of the gastric wall suggesting gastritis. On this exam, there is again evidence of free fluid within the abdomen and pelvis. The largest collection of free fluid is in the right lower quadrant. The skin over the ascites was marked for potential paracentesis. The liver is small. There is no focal mass involving the liver and the biliary tree is not dilated. The spleen measures 10.0 x 6.5 x 6.6 cm in size. The kidneys are normal in size and within normal limits. The gallbladder, common bile duct, pancreas, the aorta, and the inferior vena cava are not well imaged. The stomach is not well visualized. IMPRESSION: 1. There is a moderate amount of ascites present and the largest collection of fluid was marked in the right lower quadrant. 2. This liver is small and there is mild enlargement of the spleen. These findings are most likely related to the patient's diagnosis of cirrhosis. Dictated by: Dictated on workstation # [id number]
--- NOTE | 2018-04-30 13:35 | Occupational Therapy Eval ---
OT Evaluation-General/PLF Medical Diagnosis Admission Date Apr 30, 2018 at 03:28 Medical Diagnosis: AMS/abdominal pain Onset Date: Apr 29, 2018 Therapy Diagnosis Therapy Diagnosis: decr self care, weakness, decr funct mobility, AMS Height/Weight Height (Feet): 5 Height (Inches): 2.00 Weight (Pounds): 226 Weight (Ounces): 0.0 Precautions Precautions/Isolations: Fall Prevention, Standard Precautions Safety Interventions: Bed Exit Alarm, Reorient-PRN Referral Physician: Aury Referral Reason: Evaluation/Treatment Medical History Pertinent Medical History: Arthritis, COPD, DM, HTN, Rheumatoid Arthritis Additional Medical History Hepatitis B. Urinary frequency, incontinence.DJD. osteoporosis. Fibromyalgia. Chronic back pain. Sleep difficulties. Anxiety. PTSD, violent behavior, depression. Current History Recent hospitalization for sepsis but with poor participation in therapy. Discharged to home yesterday but unable to walk and had to be pulled into house on a sheet. Incontinent. Reviewed History: Yes Social History Home: Single Level Current Living Status: Other Family ADL-Prior Level of Function ADL PLOF Comments Pt was unable to give history on prior functional status for basic ADLs. Medical record indicated that she stayed in bed most of the time and might get up to toilet. OT Current Status Subjective Pt seen in room, up in bed, limited participation with OT Appearance Difficulty keeping pt awake to participate or to answer questions. Mental Status/Objective Attachments: Rojas Catheter, IV Current Upper Extremity ROM Pt moved arms spontaneously to over her head but UEs were otherwise either limp or in elbow extension. Pt responded with grasp with R UE but not on L UE. ADL-Treatment ADL-Current Pt with difficulty waking up and staying awake. Periodically opened eyes. Did not answer questions other than to indicate she did not want more jello. Opened eyes, held a drink with L hand, refused to feed herself jello. Limited participation. She would not participate with PT in sitting edge of bed Functional [place] Measure 0=Not Assessed/NA 4=Minimal Assistance 1=Total Assistance 5=Supervision or Setup 2=Maximal Assistance 6=Modified [place] 3=Moderate Assistance 7=Complete IndependenceIRFPAI Quality Coding Scale 6 Independent with activity with or without an assistive device 5 Patient requires set up or clean up by helper. Patient completes activity by themselves 4 Supervision or touching assist (CGA). Bayard provide cues , steadying assist 3 The helper provides less than half the effort to complete the activity 2 The helper provides more than half the effort to complete the activity 1 Dependent. The helper does all the effort to complete an activity 7 Patient refused to complete or attempt activity 9 The patient did not perform the activity before the current illness or injury 88 Not attempted due to Medical conditions or safety concerns Education OT Patient Education: Purpose of tx/functional activities Teaching Recipient: Patient Teaching Methods: Discussion Response to Teaching: Reinforcement Needed OT Port Engineer Goals Port Engineer Goals Time Frame: May 07, 2018 Eating (FIM): 5 Grooming(FIM): 5 Bathing(FIM): 5 Upper Body Dressing(FIM): 5 Lower Body Dressing(FIM): 5 Toileting(FIM): 5 Toilet/Commode Transfer(FIM): 5 Shower Transfer(FIM): 5 Additional Goals: 1-Demonstrate ADL Tasks, 2-Verbalize Understanding, 3- ImproveStrength/Ean 1=Demonstrate adherence to instructed precautions during ADL tasks. 2=Patient will verbalize/demonstrate understanding of assistive devices/ modifications for ADL. 3=Patient will improve strength/tolerance for activity to enable patient to perform ADL's. OT Education/Plan Problem List/Assessment Assessment: Decreased UE Strength, Dependent Transfers, Impaired Cognition, Impaired Self-Care Skills Pt would benefit from skilled OT to increase her independence in basic self care but benefit will be determined on her willingness and ability to participate Discharge Recommendations Plan/Recommendations: Continue POC Therapy D/C Recommendations: Custodial (TCU/NH) Treatment Plan/Plan of Care Treatment,Training & Education: Yes Patient would benefit from OT for education, treatment and training to promote independence in ADL's, mobility, safety and/or upper extremity function for ADL' s. Plan of Care: ADL Retraining, Functional Mobility, UE Funct Exercise/Act, UE Neuromus Re-Ed/Coord Treatment Duration: May 07, 2018 Frequency: 5 times per week Estimated Hrs Per Day: .25 hour per day Agreement: Yes Rehab Potential: Guarded Time/GCodes Start Time: 13:10 Stop Time: 13:20 Total Time Billed (hr/min): 10 Billed Treatment Time visit, 10 minutes evaluation moderate intensity PT/OT Therapy GCodes Therapy Functional Limitation: Physical Therapy Test(s)/Tool used to determine: FIM Functional Limitation-Current Charge Code: RIELY Modifier: CN Functional Limitation-Goal Charge Code: LEXII Modifier: JANET QUINTERO OT Apr 30, 2018 13:35
--- NOTE | 2018-04-30 15:36 | Discharge Inst-Skilled Nursing ---
Discharge Inst-Skilled NF Chief Complaint Pt is a 62yoCF known to me from recent admission who was admitted for inability to care for herself at home. She was just admitted to the hospitalist service for 5 days for sepsis from SBP. She was medically stable for discharge yesterday but felt to require assisted placement for her safety. She adamantly refused this and family was willing to take her home as a trial. She was discharged yesterday and family was unable to even get her in her home and reportedly had to use a sheet to drag her in to the house. She is unwilling to tell me any of this history. She nods her head to state she knows why she is here and where she is but will not answer any questions. This is similar to her mental state when she was here during her first admission. Patient Instructions Patient Problems: Cirrhosis, ascites, ESLD Consult/Follow Up/Orders Follow Up Appt.: With medical tech Skilled NF Admit to: [facility] Rehab Certification (SNF) I certify that SNF services are required to be given on an inpatient basis because of the above named patient's need for snf care on a continuing basis for the conditions(s) for which he/she was receiving inpatient hospital services prior to his/her transfer to the SNF. Prison Facility Order: Nursing Services, Installment Dealer-Evaluate & Treat, Physical Therapy-Evaluate & Treat Discharge Diet: Low Sodium Diet Daily Activity as Tolerated: Yes New & Resume Previous Orders Rosa M Jeffers Apr 30, 2018 15:33 ROSA M JEFFERS MD Apr 30, 2018 3:35 pm
[2018-04-30] MEDS ORDERED: HYDR-3820 PO (15:37)
--- NOTE | 2018-04-30 15:49 | Short Stay Summary-Hospitalist ---
History of Present Illness HPI/Chief Complaint Pt is a 62yoCF known to me from recent admission who was admitted for inability to care for herself at home. She was just admitted to the hospitalist service for 5 days for sepsis from SBP. She was medically stable for discharge yesterday but felt to require alf placement for her safety. She adamantly refused this and family was willing to take her home as a trial. She was discharged yesterday and family was unable to even get her in her home and reportedly had to use a sheet to drag her in to the house. She is unwilling to tell me any of this history. She nods her head to state she knows why she is here and where she is but will not answer any questions. This is similar to her mental state when she was here during her first admission. Exam Limitations: clinical condition Date Seen 04/30/18 Time Seen by a Provider: 08:15 Attending Physician Malachi Corrigan MD PCP No,Local Physician Referring Physician Date of Admission Apr 30, 2018 at 4:10 am Home Medications & Allergies Home Medications Reviewed patient Home Medication Reconciliation performed by pharmacy medication reconciliations master automotive technician and/or nursing. Patients Allergies have been reviewed. Allergies Allergies Coded Allergies Penicillins (Verified Allergy, Unknown, 04/24/18) doxycycline (Verified Allergy, Unknown, 04/24/18) levofloxacin (Verified Allergy, Unknown, 04/24/18) Past [id number]-Yslrye Hx Past Med/Social Hx: Reviewed Nursing Past Med/Soc Hx Patient Social History Alcohol Use: Denies Use Recreational Drug Use: Yes Drug of Choice: MARIJUANA Type Used: Cigarettes Physical Abuse Screen: No Sexual Abuse: No Recent Foreign Travel: No Contact w/other who traveled: No Recent Hopitalizations: Yes (04/29/2018) Recent Infectious Disease Expo: No Seasonal Allergies Seasonal Allergies: No Past Medical History Surgeries: Section, Orthopedic Cardiac: Hypertension Gastrointestinal: Hepatitis, Cirrhosis Musculoskeletal: Degenerate Disk Disease, Osteoporosis, Arthritis, Fibromyalgia , Rheumatoid Arthritis, Chronic Back Pain Loss of Vision: Denies Hearing Impairment: Denies Psychosocial: Sleep Difficulties, Anxiety, PTSD, Violent Behavior, Depression Skin/Integumentary: Eczema Family History Reviewed Nursing Family Hx Review of Systems ROS-Unable to Obtain: Unable to obtain as refuses to answer questions Constitutional: see HPI Physical Exam Physical Exam Vital Signs Vital Signs - First Documented 04/30/18 04/30/18 00:25 04:36 Temp 97.6 Pulse 82 Resp 14 B/P (MAP) 142/88 (106) Pulse Ox 100 O2 Delivery Room Air Capillary Refill : Less Than 3 Seconds Height, Weight, BMI Height: 5'2.00" Weight: 226lbs. 0.0oz. 102.607207xf; 39.5 BMI Method:Stated General Appearance: No Apparent Distress, Chronically ill HEENT: No Scleral Icterus (L), No Scleral Icterus (R) Neck: Normal Inspection; No JVD Respiratory: Lungs Clear, No Respiratory Distress Cardiovascular: Regular Rate, Rhythm, No Murmur Gastrointestinal: Normal Bowel Sounds, Soft; No Guarding, No Tenderness; Other (no obvious distention or fluid wave though exam limited by ) Extremity: No Calf Tenderness, Pedal Edema Neurologic/Psychiatric: Alert, Other (appears oriented by how she shakes/nods head but unable to truly ascertain ) Results Results/Procedures Labs Patient resulted labs reviewed. Imaging: Reviewed Imaging Report Short Stay Diagnosis Discharge Diagnosis-Short Stay Admission Diagnosis Debility Final Discharge Diagnosis Debility Conclusion Plan See below Diagnosis/Problems Diagnosis/Problems (1) Debility Assessment & Plan: Unable to care for self at home and family unable to as well director field services consulted, appreciate assistance PT/OT Family in agreement with placement at alf for patient's safety has been accepted at [facility] Plan to DC there today (2) Cirrhosis of liver due to hepatitis B Assessment & Plan: Ammonia mildly elevated Will try Lactulose to see if helps Discussed with Dr Faye regarding ascites Usg showed moderate amount of ascites Surgery consulted, appreciate recs paracentesis done prior to DC (3) Non-insulin dependent type 2 diabetes mellitus Assessment & Plan: Previously was on insulin but blood sugars WNL Hold all diabetic meds and trend (4) Gastritis Assessment & Plan: Continue on PPI Qualifiers: Qualified Codes: K29.70 - Gastritis, unspecified, without bleeding (5) Discharge planning issues Assessment & Plan: Pt still declining NH placement despite being against her best interest Discussed with family who agree she would be best service at a alf Social work assistance greatly appreciated Plan to DC to NH today Clinical Quality Measures DVT/VTE Risk/Contraindication: Risk Factor Score Per Nursin RFS Level Per Nursing on Admit: 4+=Very High ROSA M GALEANA MD Apr 30, 2018 15:49
[2018-04-30] MEDS ORDERED: LIDOCAINE 1% INJ 20 ML 20 ML VIAL ONE (15:50)
--- NOTE | 2018-04-30 16:14 | Diagnostic Imaging Report ---
INDICATION: Altered mental status. Noncontrast brain CT is performed and compared to 04/24/2018. There are no extra-axial fluid collections. No intracranial hemorrhage. No intracranial mass or mass effect. No midline shift. The ventricles are normal in size and position. There are no focal parenchymal abnormalities in the brain. Calvarial windows are unremarkable. IMPRESSION: Negative noncontrast brain CT. Dictated by: Dictated on workstation # [id number]
[2018-04-30 16:45] VITALS: BP 140/67
--- NOTE | 2018-04-30 17:11 | Diagnostic Imaging Report ---
PROCEDURE: US abdomen, limited. TECHNIQUE: Multiple realtime grayscale images were obtained over the abdomen in various projections. INDICATION: Ascites. FINDINGS: Ultrasound guidance was utilized for localization of free fluid in the abdomen for the planned paracentesis. A sizable collection of free fluid was noted in the right abdomen and the skin over the fluid was marked for the paracentesis to be performed by Dr. Faye. IMPRESSION: There has been ultrasound localization of a free fluid collection in the right abdomen. Paracentesis is pending. Dictated by: Dictated on workstation # [id number]
--- NOTE | 2018-04-30 17:16 | Consultation ---
History of Present Illness History of Present Illness Patient Consulted On(haim/time) 04/30/18 17:09 Date Seen by Provider: Apr 30, 2018 Time Seen by Provider: 17:09 History of Present Illness consult requested by Dr. Corrigan for cirrhosis, symptomatic ascites. patient is a 62 year old who was here with abdominal pain, gastritis, cirrhosis with ascites, was concerning of sbp. Had paracentesis performed. Patient was discharged home yesterday but patient had to be carried by a sheet into the house. She is not being verbal, which family states over the last 5 years she will not always verbalize. Patient will speak only a couple words to me. Pain is better, but she is having some minimal abdominal discomfort from fluid in abdomen. She is willing to have another paracentesis performed. Family would like her to have it done as well. Family states she does not want to do anything herself. U/s was performed showing moderate ascites and cirrhotic appearing liver. Allergies and Home Medications Allergies Coded Allergies: Penicillins (Verified Allergy, Unknown, 04/24/18) doxycycline (Verified Allergy, Unknown, 04/24/18) levofloxacin (Verified Allergy, Unknown, 04/24/18) Home Medications Adalimumab 40 Mg/0.4 Ml Pen.ij.kit, 40 MG SQ Sa, (Reported) Albuterol Sulfate 1 Puff Puff, 2 PUFF IH TID PRN for SHORTNESS OF BREATH, ( Reported) 1 PUFF = 90 MCG Amitriptyline HCl 50 Mg Tablet, 50 MG PO HS, (Reported) Aspirin 81 Mg Tablet.dr, 81 MG PO DAILY, (Reported) Buspirone HCl 15 Mg Tablet, 15 MG PO BID, (Reported) Cefdinir 300 Mg Capsule, 300 MG PO BID Prescribed by: ROSA M GALEANA on 04/29/18 1150 Donepezil HCl 10 Mg Tablet, 10 MG PO DAILY, (Reported) Hydrocodone/Acetaminophen 1 Each Tablet, 1 TAB PO QID PRN for PAIN-MODERATE Prescribed by: ROSA M GALEANA on 04/30/18 1537 Leflunomide 20 Mg Tablet, 20 MG PO Q48H, (Reported) Losartan Potassium 25 Mg Tablet, 25 MG PO DAILY, (Reported) Lovastatin 40 Mg Tablet, 40 MG PO HS, (Reported) Pantoprazole Sodium 20 Mg Tablet.dr, 20 MG PO DAILY, (Reported) Promethazine HCl 25 Mg Tablet, 25 MG PO Q6H PRN for NAUSEA/VOMITING-1ST LINE, ( Reported) Rizatriptan Benzoate 10 Mg Tablet, 10 MG PO UD PRN for MIGRAINE, (Reported) Sertraline HCl 100 Mg Tablet, 150 MG PO DAILY, (Reported) TAKES 1 & 1/2 (100MG) TABLETS Patient Home Medication List Home Medication List Reviewed: Yes Past Dbhejul-Uhzfvp-Krzvfl Hx Patient Social History Alcohol Use: Denies Use Recreational Drug Use: Yes Drug of Choice: MARIJUANA Type Used: Cigarettes Recent Foreign Travel: No Contact w/Someone Who Travel: No Recent Infectious Disease Expo: No Recent Hopitalizations: Yes (04/29/2018) Physical Abuse Screen: No Sexual Abuse: No Seasonal Allergies Seasonal Allergies: No Surgeries History of Surgeries: Yes (BI LAT KNEES, RT FOOT, NECK) Surgeries: Section, Orthopedic Respiratory History of Respiratory Disorde: Yes Respiratory Disorders: COPD Cardiovascular History of Cardiac Disorders: Yes Cardiac Disorders: Hypertension Neurological History of Neurological Disord: Yes Genitourinary History of Genitourinary Disor: Yes (FREQUENCY) Gastrointestinal History of Gastrointestinal Di: Yes (Hepatitis B) Gastrointestinal Disorders: Hepatitis, Cirrhosis Musculoskeletal History of Musculoskeletal Dis: Yes Musculoskeletal Disorders: Degenerate Disk Disease, Osteoporosis, Arthritis, Fibromyalgia, Rheumatoid Arthritis, Chronic Back Pain Endocrine History of Endocrine Disorders: Yes (IDDM PER FAMILY) HEENT History of HEENT Disorders: No Loss of Vision: Denies Hearing Impairment: Denies Cancer History of Cancer: No Psychosocial History of Psychiatric Problem: Yes (PER FAMILY) Behavioral Health Disorders: Sleep Difficulties, Anxiety, PTSD, Violent Behavior, Depression Integumentary History of Skin or Integumenta: Yes Skin/Integumentary Disorders: Eczema Family Medical History Significant Family History: No Pertinent Family Hx Review of Systems-General ROS-Unable to Obtain: patient not willing to participate in review of systems. Physical Exam-General Problems Physical Exam Vital Signs Vital Signs - First Documented 04/30/18 04/30/18 00:25 04:36 Temp 97.6 Pulse 82 Resp 14 B/P (MAP) 142/88 (106) Pulse Ox 100 O2 Delivery Room Air Capillary Refill : Less Than 3 Seconds General Appearance: no apparent distress HEENT: PERRL/EOMI Neck: supple Respiratory: no respiratory distress, no accessory muscle use Cardiovascular: regular rate, rhythm Gastrointestinal: non tender, soft, other (fluid wave present, no significant pain on palpation) Rectal: deferred Back: no CVA tenderness Extremities: non-tender Neurologic/Psychiatric: alert (minimal verbal communication, will nod or shake head to answer questions ) Skin: warm/dry Lymphatic: no adenopathy Data Review Labs Laboratory Tests 04/30/18 00:44: White Blood Count 8.4, Red Blood Count 4.31L, Hemoglobin 12.3, Hematocrit 36, Mean Corpuscular Volume 83, Mean Corpuscular Hemoglobin 29, Mean Corpuscular Hemoglobin Concent 34, Red Cell Distribution Width 20.8H, Platelet Count 205, Mean Platelet Volume 9.4, Neutrophils (%) (Auto) 78H, Lymphocytes (%) (Auto) 13 , Monocytes (%) (Auto) 9, Eosinophils (%) (Auto) 0, Basophils (%) (Auto) 0, Neutrophils # (Auto) 6.6, Lymphocytes # (Auto) 1.1, Monocytes # (Auto) 0.8, Eosinophils # (Auto) 0.0, Basophils # (Auto) 0.0, Prothrombin Time 21.1H, INR Comment 1.8H, Sodium Level 138, Potassium Level 3.7, Chloride Level 106, Carbon Dioxide Level 17L, Anion Gap 15H, Blood Urea Nitrogen 37H, Creatinine 1.07, Estimat Glomerular Filtration Rate 52, BUN/Creatinine Ratio 35, Glucose Level 83 , Lactic Acid Level 1.28, Calcium Level 9.4, Corrected Calcium 10.0, Total Bilirubin 1.5H, Aspartate Amino Transf (AST/SGOT) 76H, Alanine Aminotransferase (ALT/SGPT) 58H, Alkaline Phosphatase 122, C-Reactive Protein High Sensitivity 7.12H, Total Protein 7.4, Albumin 3.2, Lipase 137H 04/30/18 01:04: Ammonia 53H 04/30/18 01:30: Urine Color AMBERH, Urine Clarity VERY CLOUDYH, Urine pH 6, Urine Specific [place] 1.020, Urine Protein 2+H, Urine Glucose (UA) NEGATIVE, Urine Ketones 2+H , Urine Nitrite NEGATIVE, Urine Bilirubin NEGATIVE, Urine Urobilinogen NORMAL, Urine Leukocyte Esterase 2+H, Urine RBC (Auto) 1+H, Urine RBC NONE, Urine WBC 2- 5, Urine Squamous Epithelial Cells >50H, Urine Crystals NONE, Urine Bacteria TRACE, Urine Casts NONE, Urine Mucus SMALLH, Urine Yeast MODERATEH, Urine Culture Indicated YES Assessment/Plan Assessment/Plan Assessment/Plan cirrhosis with symptomatic ascites gastritis patient not performing daily needs, family unable to provide. patient's family needing snf care being arranged patient and family discussed risks and benefits of u/s guided paracentesis and wish to proceed. okay with transferring if can be arranged. Clinical Quality Measures DVT/VTE Risk/Contraindication: Risk Factor Score Per Nursin RFS Level Per Nursing on Admit: 4+=Very High KVNG CAMACHO DO Apr 30, 2018 17:16
[2018-04-30] MEDS ORDERED: SIMvastatin 20 MG (ZOCOR) TAB PO SCH (21:00)
[2018-04-30] MEDS ORDERED: NON-FORMULARY MEDICATION 1 EA EA (Lovastatin 40 MG) PO SCH (21:00)
[2018-04-30] MEDS ORDERED: AMITRIPTYLINE 50 MG (ELAVIL) TAB PO SCH (21:00)
--- NOTE | 2018-04-30 22:05 | OPERATIVE REPORT ---
DATE OF SERVICE: 04/30/2018 PREOPERATIVE DIAGNOSIS: Symptomatic ascites. POSTOPERATIVE DIAGNOSIS: Symptomatic ascites. PROCEDURE: Ultrasound-guided paracentesis. SURGEON: Kvng Faye DO ANESTHESIA: A 1% lidocaine, total of 5 mL. ESTIMATED BLOOD LOSS: None. COMPLICATIONS: None. INDICATIONS: The patient is a 62-year-old female with symptomatic ascites. She understands risks and benefits of the procedure along with family who wished to proceed. Consent was signed on the chart. DESCRIPTION OF PROCEDURE: The patient was prepped and draped in sterile fashion. Timeout was performed. Ultrasound was used to find the best pocket and local anesthetic was infiltrated into the skin. A #11 blade scalpel was used to make a stab incision and using the safety paracentesis needle and catheter this was advanced through the skin until straw-colored fluid was withdrawn. The catheter was then advanced into the abdomen and the needle was removed. A total of 3600 mL of straw-colored fluid was withdrawn from the abdomen and the catheter was then removed and sterile bandage was applied. The patient tolerated procedure well without any complications. Job ID: [id number] DocumentID: [id number] Dictated Date: 04/30/2018 16:53:31 Psychiatry Teacher Date: 04/30/2018 22:05:15 Dictated By: KVNG FAYE DO
== END 2018-04-30 15:39 ==
LOC: EDUNIT# 00:25 → ER 00:28 → 4TH 03:28 → UNDOADMOB 03:28 → EDBD 03:28 → 4TH 04:10
PROVIDERS: ADMIT Internal Medicine; ATTEND Internal Medicine
DX: K74.60 Unspecified cirrhosis of liver (principal); R18.8 Other ascites; E11.9 Type 2 diabetes mellitus without complications; K29.70 Gastritis, unspecified, without bleeding; R53.81 Other malaise; B19.10 Unspecified viral hepatitis B without hepatic coma; F17.210 Nicotine dependence, cigarettes, uncomplicated; J44.9 Chronic obstructive pulmonary disease, unspecified; I10 Essential (primary) hypertension; M79.7 Fibromyalgia; M06.9 Rheumatoid arthritis, unspecified; M81.0 Age-related osteoporosis without current pathological fracture; F41.9 Anxiety disorder, unspecified; F32.9 Major depressive disorder, single episode, unspecified; F12.90 Cannabis use, unspecified, uncomplicated; F43.10 Post-traumatic stress disorder, unspecified; Z79.4 Long term (current) use of insulin; Z79.899 Other long term (current) drug therapy
CPT/HCPCS: 36415; 51702; 70450; 71045; 76700; 76705; 80053; 81000; 82140; 83605; 83690; 85025; 85610; 86141; 87040; 87088; 90686; G0378

== ENCOUNTER → 2018-05-07 | Outpatient (CLI) | payer MEDICARE ==
[~2018-05-07] MED LIST changes: +LIDOCAINE 1% INJ 20 ML 20 ML VIAL ONE
--- NOTE | 2018-05-10 23:28 | OPERATIVE REPORT ---
DATE OF SERVICE: 05/07/2018 PREPROCEDURE DIAGNOSIS: Symptomatic ascites. POSTOPERATIVE DIAGNOSIS: Symptomatic ascites. PROCEDURE: Ultrasound-guided paracentesis. SURGEON: Kvng Faye DO ANESTHESIA: Local 1% lidocaine 5 mL. ESTIMATED BLOOD LOSS: Minimal. COMPLICATIONS: None. INDICATIONS: The patient is a 62-year-old female with symptomatic ascites. She and family understand risks and benefits of procedure and wished to proceed. Consent was signed and on the chart. DESCRIPTION OF PROCEDURE: The patient was inspected with ultrasound and area was located for best site for paracentesis. The patient was prepped and draped in sterile fashion. Timeout was performed. Local anesthetic was infiltrated into the area of insertion point. An 11 blade scalpel was used to make a skin incision. Ultrasound was used to guide the safety paracentesis needle and catheter into the fluid collection. Once this [place] back straw colored fluid, the catheter was then advanced. A total of 4000 mL of straw colored fluid was withdrawn. The catheter was then removed and sterile bandage was applied. The patient tolerated procedure well without any complications. She was sent to recovery room in stable condition, to be discharged. Job ID: [id number] DocumentID: [id number] Dictated Date: 05/10/2018 19:55:42 Orthopedic Shoe Maker Date: 05/10/2018 23:27:15 Dictated By: KVNG FAYE DO
== END ==
LOC: RAD 13:20
PROVIDERS: ATTEND Family Medicine
DX: R18.8 Other ascites (principal); B19.10 Unspecified viral hepatitis B without hepatic coma
CPT/HCPCS: 49083